=== PATIENT | male | born 1995 | race Caucasian/White ===

== ENCOUNTER 2018-08-11 16:55 | Emergency (ER) | payer OTHER ==
[2018-08-11 17:03] VITALS: BP 119/61; PULSE 98; RESP 18; TEMP 99
[2018-08-11] MEDS ORDERED: PROPARACAINE 0.5% OPHTH DROPS 15 ML BTL RIGHT EYE STA (17:30)
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
== END 2018-08-11 19:01 | disposition home or self-care (01) ==
LOC: EC 16:55
DX: H57.11 Ocular pain, right eye (principal); F17.200 Nicotine dependence, unspecified, uncomplicated
CPT/HCPCS: 99284

== ENCOUNTER 2019-03-07 13:28 | Emergency (ER) | payer OTHER ==
[2019-03-07 13:44] VITALS: BP 119/70; PULSE 91; RESP 16; TEMP 98.2
[2019-03-07] MEDS ORDERED: HYDROcodone/APAP 7.5-325MG 1 EACH TAB PO ONE (14:18)
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
== END 2019-03-07 14:48 | disposition home or self-care (01) ==
LOC: EC 13:28
DX: M25.551 Pain in right hip (principal); F17.200 Nicotine dependence, unspecified, uncomplicated
CPT/HCPCS: 99283

== ENCOUNTER → 2021-10-07 | Outpatient (CLI) | payer MEDICARE, OTHER ==
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
== END | disposition home or self-care (01) ==
LOC: RADMRIMAIN 15:55
PROVIDERS: ATTEND Nurse Practitioner Family
DX: S42.035A Nondisplaced fracture of lateral end of left clavicle, initial encounter for closed fracture (principal); M50.21 Other cervical disc displacement, high cervical region; M51.24 Other intervertebral disc displacement, thoracic region; V89.2XXA Person injured in unspecified motor-vehicle accident, traffic, initial encounter
CPT/HCPCS: 72141

== ENCOUNTER 2021-12-03 14:08 | Emergency (ER) | payer MEDICARE, OTHER ==
[2021-12-03 14:18] VITALS: BP 133/76; PULSE 79; RESP 18; TEMP 98.1
[2021-12-03] MEDS ORDERED: ORPHENADRINE 30 MG/ML 2 ML VIAL IM STA (15:25)
[2021-12-03] MEDS ORDERED: MORPHINE SULFATE 4 MG/ML SYRINGE IM STA (15:26)
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
== END 2021-12-03 16:07 | disposition home or self-care (01) ==
LOC: EC 14:08
DX: M54.2 Cervicalgia (principal); M25.512 Pain in left shoulder; M54.9 Dorsalgia, unspecified; F17.200 Nicotine dependence, unspecified, uncomplicated
CPT/HCPCS: 99283; 96372; J2270; J2360

== ENCOUNTER → 2021-12-04 | Outpatient (CLI) | payer MEDICARE, OTHER ==
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
== END | disposition home or self-care (01) ==
LOC: RADMRIMAIN 12:10
PROVIDERS: ATTEND Nurse Practitioner Family
DX: M47.26 Other spondylosis with radiculopathy, lumbar region (principal)
CPT/HCPCS: 72148

== ENCOUNTER 2021-12-12 09:48 | Emergency (ER) | payer MEDICARE, OTHER ==
[2021-12-12 09:58] VITALS: BP 157/83; PULSE 130; RESP 18; TEMP 98.3
[2021-12-12] MEDS ORDERED: HYDROmorphone 0.5 MG/0.5 ML SYRINGE IM STA (10:43)
[2021-12-12] MEDS ORDERED: methylPREDNISolone SOD SUCCI 125 MG/2 ML VIAL IM ONE (10:45)
[2021-12-12] MEDS ORDERED: ORPHENADRINE 30 MG/ML 2 ML VIAL IM STA (10:45)
--- NOTE | 2021-12-12 11:56 | ED ---
Back Pain HPI - General Chief Complaint: Back Pain/Injury Stated Complaint: revisit - back pain Time Seen by Provider: 12/12/21 10:20 Source: patient, RN notes reviewed Limitations: no limitations - History of Present Illness Initial Comments: This is a 26-year-old male who reports to the emergency department for lower back pain. He was evaluated 9 days ago for lower back pain as well. 8 days ago, he had an MRI, revealing mild degenerative changes and mild areas of disc herniation, however it could not find a reason for the patient's right-sided radiculopathy symptoms. The patient states that he is in distress due to the pain, and is not able to accomplish basic tasks. During the visit, the patient reviewed his whole to do list for the day with me, and explained that given his level of pain, he is unable to accomplish the tasks he needs to do. He also began to have an emotional breakdown during the visit, and said that he was anxious and felt emotionally unstable. Patient was given the option to have an evaluation by EPS, however he declined and said that he does not have any suicidal or homicidal ideations. - Related Data Previous Rx's Medication Instructions Recorded Escitalopram [Lexapro] 10 mg PO DAILY #7 tab 07/20/15 Gabapentin [Neurontin] 900 mg PO TID@0800,1300,2200 #63 07/20/15 cap Montelukast [Singulair] 10 mg PO HS #7 tab 07/20/15 QUEtiapine [SEROquel] 50 mg PO BID@0800,1300 #14 tab 07/20/15 QUEtiapine [SEROquel] 300 mg PO HS #21 tab 07/20/15 Trihexyphenidyl [Artane] 2 mg PO TID@0800,1300,2200 #21 tab 07/20/15 Enoxaparin [Lovenox] 100 mg SQ Q12H #20 syr 03/07/19 oxyCODONE-APAP 7.5-325MG [Percocet 1 tab PO Q4HR PRN 3 Days #18 tab 12/12/21 7.5-325 mg] predniSONE 50 mg PO DAILY 5 Days #5 tab 12/12/21 Allergies Allergy/AdvReac Type Severity Reaction Status Date / Time No Known Allergies Allergy Verified 12/12/21 09:50 Review of Systems ROS Statement: Those systems with pertinent positive or pertinent negative responses have been documented in the HPI. ROS Other: All systems not noted in ROS Statement are negative. Constitutional: Denies: fever, chills ENT: Denies: ear pain, throat pain Respiratory: Denies: cough, dyspnea Cardiovascular: Denies: chest pain, palpitations Gastrointestinal: Denies: abdominal pain, nausea, vomiting, diarrhea Genitourinary: Denies: urgency, dysuria Musculoskeletal: Reports: back pain Skin: Denies: rash Neurological: Denies: headache Psychiatric: Reports: anxiety Past Medical History Past Medical History: No Reported History Additional Past Medical History / Comment(s): Allergies, burn to right eye, narcalepsy History of Any Multi-Drug Resistant Organisms: None Reported Past Surgical History: No Surgical Hx Reported Additional Past Surgical History / Comment(s): foot surgery for cellulitis, multiple right eye surgeries Past Anesthesia/Blood Transfusion Reactions: No Reported Reaction Past Psychological History: ADD/ADHD, Anxiety, Bipolar, Depression, PTSD, Schizoaffective Disorder Smoking Status: Current every day smoker Past Alcohol Use History: Daily Past Drug Use History: Marijuana - Past Family History Mother Additional Family Medical History / Comment(s): Depression. Maybe Bipolar Father Additional Family Medical History / Comment(s): Bipolar/ Paranoid schizophrenia General Exam Limitations: no limitations General appearance: alert, anxious, in distress Respiratory exam: Present: normal lung sounds bilaterally. Absent: respiratory distress, wheezes, rales, rhonchi, stridor Cardiovascular Exam: Present: regular rate, normal rhythm, normal heart sounds. Absent: systolic murmur, diastolic murmur, rubs, gallop, clicks Back exam: Present: tenderness (right lower back) Neurological exam: Present: alert, oriented X3, CN II-XII intact Psychiatric exam: Present: depressed, anxious Skin exam: Present: warm, dry, intact, normal color. Absent: rash Course Vital Signs 12/12/21 09:51 Temperature 98.3 F Pulse Rate 130 H Respiratory 18 Rate Blood Pressure 157/83 O2 Sat by Pulse 98 Oximetry Medical Decision Making - Medical Decision Making This is a 26-year-old male who reports to the emergency department for lower back pain. This has been a relatively chronic issue for the patient, and he is waiting to get in with a pain management physician. Patient is requesting 7 days of oral Dilaudid. I am not willing to provide this to the patient. I will give him a three-day prescription for Percocet, since he has documented reasons for his pain, and it does not improve with [place]. Patient also given prednisone on discharge, to help with any inflammation. Patient advised to avoid taking the prednisone with any other anti-inflammatories such as ibuprofen. He can take Tylenol with this. Given that the patient has chronic back pain, he had a recent MRI, and there are no new symptoms, repeat imaging was not obtained. Patient did settle down at the end of the visit and was no longer in any emotional distress. Return precautions reviewed in depth, the patient is instructed to return to the emergency department with any new, worsening, or concerning symptoms. Patient verbalized understanding. This case was discussed in detail with the attending ED physician. Presentation, findings, and treatment plan discussed in detail as well. Disposition Clinical Impression: Intervertebral disc prolapse with impingement Disposition: HOME SELF-CARE Instructions (If sedation given, give patient instructions): Acute Low Back Pain (ED) Additional Instructions: Return to the emergency department if your symptoms worsen, you develop weakness in the legs, or loss of bowel/bladder control. Avoid driving or operating machinery with the Percocet. Take the Prednisone for 5 days, this is best taken in the morning. Do not take Motrin or any other antiinflammatories while taking the Prednisone. You can take Tylenol. Follow up with your primary care provider in 1-2 days. Prescriptions: oxyCODONE-APAP 7.5-325MG [Percocet 7.5-325 mg] 1 tab PO Q4HR PRN 3 Days #18 tab PRN Reason: Pain predniSONE 50 mg PO DAILY 5 Days #5 tab Is patient prescribed a controlled substance at d/c from ED?: Yes If prescribed controlled substance>3 days was MAPS reviewed?: Prescribed <3 Days Referrals: Hung Nicole MD [Primary Care Provider] - 1-2 days
== END 2021-12-12 12:03 | disposition home or self-care (01) ==
LOC: EC 09:48
DX: M51.26 Other intervertebral disc displacement, lumbar region (principal); F90.9 Attention-deficit hyperactivity disorder, unspecified type; F41.9 Anxiety disorder, unspecified; F31.9 Bipolar disorder, unspecified; F43.10 Post-traumatic stress disorder, unspecified; F25.9 Schizoaffective disorder, unspecified; F17.200 Nicotine dependence, unspecified, uncomplicated; F12.90 Cannabis use, unspecified, uncomplicated
CPT/HCPCS: 99283; 96372 ×3; J2360; J2930; J1170

== ENCOUNTER 2022-01-18 15:29 | Inpatient (IN) | payer MEDICARE, MEDICAID ==
[2022-01-18] MEDS ORDERED: SODIUM CHLORIDE 0.9% 1,000 ML IV STA ×2 (16:24)
[2022-01-18 17:44] LABS: Basophils # (A) 0.1 k/uL (0-0.2); Basophils % (A) 1 %; Eosinophils # (A) 0.1 k/uL (0-0.7); Eosinophils % (A) 1 %; HCT 48.4 % (39.0-53.0); HGB 15.7 gm/dL (13.0-17.5); Lymphocytes # (A) 2.4 k/uL (1.0-4.8); Lymphocytes % (A) 32 %; MCH 29.1 pg (25.0-35.0); MCHC 32.4 g/dL (31.0-37.0); MCV 89.7 fL (80.0-100.0); Mean Platelet Volume 6.5; Monocytes # (A) 0.7 k/uL (0-1.0); Monocytes % (A) 9 %; Neutrophils # (A) 3.9 k/uL (1.3-7.7); Neutrophils % (A) 53 %; Platelet Count 225 k/uL (150-450); RDW 12.6 % (11.5-15.5); WBC 7.4 k/uL (3.8-10.6)
[2022-01-18 18:06] LABS: ALT 26 U/L (4-49); AST 28 U/L (17-59); Acetaminophen <10.0 ug/mL; African American GFR (CKD) >90 (>60 ml/min/1.73 sqM); Albumin 4.6 g/dL (3.5-5.0); Alcohol <10 mg/dL; Alkaline Phosphatase 62 U/L (38-126); Anion Gap 7 mmol/L; Blood Urea Nitrogen 15 mg/dL (9-20); Calcium 9.3 mg/dL (8.4-10.2); Carbon Dioxide 29 mmol/L (22-30); Chloride 105 mmol/L (98-107); Glucose 97 mg/dL (74-99); Non-African American GFR(CKD) >90 (>60 ml/min/1.73 sqM); Potassium 3.8 mmol/L (3.5-5.1); Salicylate <1.0 mg/dL; Sodium 141 mmol/L (137-145); Total Bilirubin 0.5 mg/dL (0.2-1.3); Total Protein 7.9 g/dL (6.3-8.2)
--- NOTE | 2022-01-18 18:08 | ED ---
Psych HPI - General Chief Complaint: Psychiatric Symptoms Stated Complaint: Mental health Source: patient Mode of arrival: ambulatory - History of Present Illness Initial Comments: This 26-year-old male presents with a complaint of an overdose. He states that he took multiple psychiatric medications yesterday around 3 PM. He states that he took these medications in attempt to commit suicide. Please see nursing notes for details on the medications. He is having hard time quantifying how many pills he took. He states that he may have taken 30+ pills. He does relate that he has schizoaffective disorder. He has been having some visual and auditory hallucinations as well. He states that he does not feel as though his psychiatric medications are working very well for him. He also relates a h istory of methamphetamine and heroin abuse. His last methamphetamine use was approximately 3 days ago. He denies any recent heroin use. He does relate chronic pain issues related to back issues. He states that his doctor also thinks she has fibromyalgia. He is denying any fevers, chills, chest pain, shortness of breath. No other identifiable complaints or modifying factors. - Related Data Home Medications Medication Instructions Recorded Confirmed Albuterol Inhaler [Ventolin Hfa 2 puff INHALATION RT-Q4H PRN 01/18/22 01/19/22 Inhaler] Fluticasone Nasal [place] [Flonase 1 spray EA NOSTRIL DAILY PRN 01/18/22 01/19/22 Nasal [place]] Lisdexamfetamine Dimesylate 20 mg PO DAILY@0900 01/18/22 01/19/22 [Vyvanse] Lisdexamfetamine Dimesylate 40 mg PO DAILY@0900 01/18/22 01/19/22 [Vyvanse] Ondansetron [Zofran] 4 mg PO Q4H PRN 01/18/22 01/19/22 Orphenadrine [Norflex] 100 mg PO BID 01/18/22 01/19/22 Paliperidone Palmitate [Invega 819 mg IM Q84H 01/18/22 01/19/22 Trinza] Paliperidone [Invega] 3 mg PO DAILY PRN 01/18/22 01/19/22 Pregabalin [Lyrica] 100 mg PO BID 01/18/22 01/19/22 clonazePAM [KlonoPIN] 0.5 mg PO BID 01/18/22 01/19/22 prednisoLONE ACETATE 1% OPHTH 1 drop RIGHT EYE BID 01/18/22 01/19/22 [Pred Forte 1%] Allergies Allergy/AdvReac Type Severity Reaction Status Date / Time No Known Allergies Allergy Verified 01/19/22 04:37 Review of Systems ROS Statement: Those systems with pertinent positive or pertinent negative responses have been documented in the HPI. ROS Other: All systems not noted in ROS Statement are negative. Past Medical History Past Medical History: No Reported History Additional Past Medical History / Comment(s): Allergies, burn to right eye, narcalepsy History of Any Multi-Drug Resistant Organisms: None Reported Past Surgical History: No Surgical Hx Reported Additional Past Surgical History / Comment(s): foot surgery for cellulitis, multiple right eye surgeries Past Anesthesia/Blood Transfusion Reactions: No Reported Reaction Past Psychological History: ADD/ADHD, Anxiety, Bipolar, Depression, PTSD, Schizoaffective Disorder Smoking Status: Current every day smoker Past Alcohol Use History: Daily Past Drug Use History: Marijuana - Past Family History Mother Additional Family Medical History / Comment(s): Depression. Maybe Bipolar Father Additional Family Medical History / Comment(s): Bipolar/ Paranoid schizophrenia General Exam - General Exam Comments Initial Comments: GENERAL: The patient is well nourished and well hydrated. VITAL SIGNS: Heart rate, blood pressure, respiratory rate reviewed as recorded in nurse's notes. EYES: Pupils are round and reactive. Extraocular movements are intact. No conjunctival / lid redness or swelling. ENT: No external evidence of injury, swelling, or ecchymosis. Airway is patent. Throat is clear. NECK: Nontender. No swelling or evidence of injury. No subcutaneous emphysema. Trachea is midline. No thyroid mass. HEART: Regular rate and rhythm. Good peripheral pulses. LUNGS/CHEST: Breath sounds clear and equal bilaterally. No rales, rhonchi, or wheezes. No ecchymosis, subcutaneous emphysema, or tenderness. ABDOMEN: Abdomen soft without tenderness. No palpable masses or organomegaly. No peritoneal signs. No abdominal wall swelling or ecchymosis. EXTREMITIES: No extremity tenderness. Normal muscle tone and function. No thoracolumbar tenderness. NEUROLOGIC: Sensation is grossly intact. Cranial nerve exam reveals face is symmetrical, tongue is midline, speech is clear. SKIN: No abrasions or ecchymosis is noted. No induration or masses noted. PSYCHIATRIC: Alert and oriented. Appropriate behavior currently. Limitations: no limitations Course Vital Signs 01/18/22 01/18/22 01/19/22 15:32 23:30 04:58 Temperature 97.5 F L 97.7 F 97.7 F Pulse Rate 121 H 87 77 Respiratory 18 16 15 Rate Blood Pressure 158/87 136/86 145/70 O2 Sat by Pulse 100 97 97 Oximetry Medical Decision Making - Medical Decision Making The patient was seen and examined. All diagnostics are reviewed. The nurses calling poison control further recommendations in regard to his overdose. Laboratories drawn. The laboratory does not show any acute significant abnor malities. The nurse did discuss with poison control center and they felt as though it he is stable as he isn't did have the ingestion over 24 hours ago and his laboratory and EKG are all normal. Consult is placed for psych/EPS. We are currently awaiting their evaluation. Care will be passed off to Dr. Noyola. No complications noted during ER course thus far. - Lab Data Result diagrams: 01/18/22 17:32 01/18/22 17:32 Lab Results 01/18/22 01/18/22 01/18/22 Range/Units 17:32 17:32 18:49 WBC 7.4 (3.8-10.6) k/uL RBC 5.40 (4.30-5.90) m/uL Hgb 15.7 (13.0-17.5) gm/dL Hct 48.4 (39.0-53.0) % MCV 89.7 (80.0-100.0) fL MCH 29.1 (25.0-35.0) pg MCHC 32.4 (31.0-37.0) g/dL RDW 12.6 (11.5-15.5) % Plt Count 225 (150-450) k/uL MPV 6.5 Neutrophils % 53 % Lymphocytes % 32 % Monocytes % 9 % Eosinophils % 1 % Basophils % 1 % Neutrophils # 3.9 (1.3-7.7) k/uL Lymphocytes # 2.4 (1.0-4.8) k/uL Monocytes # 0.7 (0-1.0) k/uL Eosinophils # 0.1 (0-0.7) k/uL Basophils # 0.1 (0-0.2) k/uL Sodium 141 (137-145) mmol/L Potassium 3.8 (3.5-5.1) mmol/L Chloride 105 (98-107) mmol/L Carbon Dioxide 29 (22-30) mmol/L Anion Gap 7 mmol/L BUN 15 (9-20) mg/dL Creatinine 0.92 (0.66-1.25) mg/dL Est GFR (CKD-EPI)AfAm >90 (>60 ml/min/1.73 sqM) Est GFR (CKD-EPI)NonAf >90 (>60 ml/min/1.73 sqM) Glucose 97 (74-99) mg/dL Calcium 9.3 (8.4-10.2) mg/dL Total Bilirubin 0.5 (0.2-1.3) mg/dL AST 28 (17-59) U/L ALT 26 (4-49) U/L Alkaline Phosphatase 62 (38-126) U/L Total Protein 7.9 (6.3-8.2) g/dL Albumin 4.6 (3.5-5.0) g/dL Urine Color Urine Appearance (Clear) Urine pH (5.0-8.0) Ur Specific [place] (1.001-1.035) Urine Protein (Negative) Urine Glucose (UA) (Negative) Urine Ketones (Negative) Urine Blood (Negative) Urine Nitrite (Negative) Urine Bilirubin (Negative) Urine Urobilinogen (<2.0) mg/dL Ur Leukocyte Esterase (Negative) Urine RBC (0-5) /hpf Urine WBC (0-5) /hpf Amorphous Sediment (None) /hpf Urine Bacteria (None) /hpf Urine Mucus (None) /hpf Salicylates <1.0 mg/dL Urine Opiates Screen Not Detected (NotDetected) Ur Oxycodone Screen Not Detected (NotDetected) Urine Methadone Screen Not Detected (NotDetected) Ur Propoxyphene Screen Not Detected (NotDetected) Acetaminophen <10.0 ug/mL Ur Barbiturates Screen Not Detected (NotDetected) U Tricyclic Antidepress Not Detected (NotDetected) Ur Phencyclidine Scrn Not Detected (NotDetected) Ur Amphetamines Screen Not Detected (NotDetected) U Methamphetamines Scrn Detected H (NotDetected) U Benzodiazepines Scrn Not Detected (NotDetected) Urine Cocaine Screen Not Detected (NotDetected) U Marijuana (THC) Screen Detected H (NotDetected) Serum Alcohol <10 mg/dL Coronavirus (PCR) (Not Detectd) 01/19/22 01/19/22 Range/Units 00:00 02:54 WBC (3.8-10.6) k/uL RBC (4.30-5.90) m/uL Hgb (13.0-17.5) gm/dL Hct (39.0-53.0) % MCV (80.0-100.0) fL MCH (25.0-35.0) pg MCHC (31.0-37.0) g/dL RDW (11.5-15.5) % Plt Count (150-450) k/uL MPV Neutrophils % % Lymphocytes % % Monocytes % % Eosinophils % % Basophils % % Neutrophils # (1.3-7.7) k/uL Lymphocytes # (1.0-4.8) k/uL Monocytes # (0-1.0) k/uL Eosinophils # (0-0.7) k/uL Basophils # (0-0.2) k/uL Sodium (137-145) mmol/L Potassium (3.5-5.1) mmol/L Chloride (98-107) mmol/L Carbon Dioxide (22-30) mmol/L Anion Gap mmol/L BUN (9-20) mg/dL Creatinine (0.66-1.25) mg/dL Est GFR (CKD-EPI)AfAm (>60 ml/min/1.73 sqM) Est GFR (CKD-EPI)NonAf (>60 ml/min/1.73 sqM) Glucose (74-99) mg/dL Calcium (8.4-10.2) mg/dL Total Bilirubin (0.2-1.3) mg/dL AST (17-59) U/L ALT (4-49) U/L Alkaline Phosphatase (38-126) U/L Total Protein (6.3-8.2) g/dL Albumin (3.5-5.0) g/dL Urine Color Yellow Urine Appearance Turbid (Clear) Urine pH 6.0 (5.0-8.0) Ur Specific [place] 1.034 (1.001-1.035) Urine Protein Trace H (Negative) Urine Glucose (UA) Negative (Negative) Urine Ketones Negative (Negative) Urine Blood Negative (Negative) Urine Nitrite Negative (Negative) Urine Bilirubin Negative (Negative) Urine Urobilinogen 2.0 (<2.0) mg/dL Ur Leukocyte Esterase Trace H (Negative) Urine RBC 3 (0-5) /hpf Urine WBC 11 H (0-5) /hpf Amorphous Sediment Rare H (None) /hpf Urine Bacteria Occasional H (None) /hpf Urine Mucus Moderate H (None) /hpf Salicylates mg/dL Urine Opiates Screen (NotDetected) Ur Oxycodone Screen (NotDetected) Urine Methadone Screen (NotDetected) Ur Propoxyphene Screen (NotDetected) Acetaminophen ug/mL Ur Barbiturates Screen (NotDetected) U Tricyclic Antidepress (NotDetected) Ur Phencyclidine Scrn (NotDetected) Ur Amphetamines Screen (NotDetected) U Methamphetamines Scrn (NotDetected) U Benzodiazepines Scrn (NotDetected) Urine Cocaine Screen (NotDetected) U Marijuana (THC) Screen (NotDetected) Serum Alcohol mg/dL Coronavirus (PCR) Not Detected (Not Detectd) Disposition Clinical Impression: Depression, Suicidal ideation, Attempted suicide, Schizoaffective disorder, Hallucinations, Overdose Disposition: ADMITTED IP TO THIS [facility] Condition: Fair Is patient prescribed a controlled substance at d/c from ED?: No Time of Disposition: 03:00 Decision Date: 01/19/22 Decision Time: 03:00
[2022-01-18 19:16] LABS: Amphetamine Screen,Urine Not Detected (NotDetected); Barbiturate Screen,Urine Not Detected (NotDetected); Benzodiazepines Screen,Urine Not Detected (NotDetected); Cocaine Screen,Urine Not Detected (NotDetected); Methadone Screen, Urine Not Detected (NotDetected); Opiate Screen,Urine Not Detected (NotDetected); Oxycodone Screen, Urine Not Detected (NotDetected); Phencyclidine Screen,Urine Not Detected (NotDetected); Tricyclic Antidepressant,Urine Not Detected (NotDetected); Urn Cannabinoid Scrn Detected (NotDetected)
[2022-01-18] MEDS ORDERED: ALBUTEROL NEBULIZED 2.5 MG/3 ML INHALATION PRN (21:11)
[2022-01-18] MEDS ORDERED: FLUTICASONE 50MCG/SPRAY NASAL 16GM EA NOSTRIL PRN (21:11)
[2022-01-18] MEDS ORDERED: ONDANSETRON 4 MG TAB PO PRN (21:11)
[2022-01-18] MEDS ORDERED: PALIPERIDONE 3 MG TAB.ER.24 PO PRN (21:11)
[2022-01-18] MEDS: PREGABALIN 100 MG CAP PO SCH (21:28)
[2022-01-18] MEDS: CYCLOBENZAPRINE 10 MG TAB PO SCH (21:28)
[2022-01-18] MEDS: clonazePAM 0.5 MG TAB PO SCH (21:29)
[2022-01-19] MEDS ORDERED: ALBUTEROL INHALER 60 PUFF/8 GM INHALER (MHU) INHALATION PRN (04:12)
[2022-01-19] MEDS ORDERED: HALOPERIDOL LACTATE 5 MG/ML 1 ML VIAL IM PRN (04:17)
[2022-01-19] MEDS ORDERED: MAG HYDROX/AL HYDROX/SIMETH 30 ML CUP PO PRN (04:17)
[2022-01-19] MEDS ORDERED: MAGNESIUM HYDROXIDE 2,400 MG/10 ML CUP PO PRN (04:17)
[2022-01-19] MEDS ORDERED: ACETAMINOPHEN TAB 325 MG TAB PO PRN (04:17)
[2022-01-19] MEDS ORDERED: LORazepam 2 MG/ML INJ IM PRN (04:22)
[2022-01-19 05:29] LABS: Amorphous Sediment,Urine Rare /hpf; Appearance,Urine Turbid (Clear); Bacteria,Urine Occasional /hpf; Bilirubin,Urine Negative (Negative); Blood,Urine Negative (Negative); Color,Urine Yellow; Glucose,Urine (UA) Negative (Negative); Ketones,Urine Negative (Negative); Leukocyte Esterase,Urine Trace (Negative); Mucus,Urine Moderate /hpf; Nitrite,Urine Negative (Negative); Protein,Urine Trace (Negative); RBC,Urine 3 /hpf (0-5); Specific Gravity,Urine 1.034 (1.001-1.035); WBC,Urine 11 /hpf (0-5)
[2022-01-19] MEDS: CYCLOBENZAPRINE 10 MG TAB PO SCH ×2 (08:30→19:57)
[2022-01-19] MEDS: NICOTINE 14MG/24HR PATCH TRANSDERM SCH (08:31)
[2022-01-19] MEDS: clonazePAM 0.5 MG TAB PO SCH ×2 (08:31→19:57)
[2022-01-19] MEDS: PREGABALIN 100 MG CAP PO SCH ×2 (08:31→19:57)
[2022-01-19] MEDS ORDERED: NON FORMULARY DRUG (Orphenadrine 100 MG Tablet) PO SCH (09:00)
[2022-01-19] MEDS ORDERED: PREGABALIN 100 MG CAP PO SCH (09:00)
[2022-01-19] MEDS ORDERED: clonazePAM 0.5 MG TAB PO SCH (09:00)
[2022-01-19] MEDS ORDERED: NON FORMULARY DRUG (Lisdexamfetamine Dimesylate [Vyvanse] 20 MG Capsule) PO SCH (09:00)
[2022-01-19] MEDS: NON FORMULARY DRUG (Lisdexamfetamine Dimesylate [Vyvanse] 40 MG Capsule) PO SCH (09:17)
[2022-01-19] MEDS: prednisoLONE ACETATE 1% OPHTH DROPS 5 ML BTL RIGHT EYE SCH ×2 (10:33→19:56)
[2022-01-19] MEDS: PALIPERIDONE 3 MG TAB.ER.24 PO SCH ×2 (11:41→19:57)
[2022-01-19] MEDS: haloperidoL 5 MG TAB PO PRN ×2 (11:44→21:08)
[2022-01-19] MEDS: LORazepam 1 MG TAB PO PRN ×2 (11:44→21:08)
[2022-01-19] MEDS ORDERED: LORazepam 2 MG/ML INJ IM STA (12:05)
--- NOTE | 2022-01-19 13:19 | P.HP ---
Psychiatric H&P - . H&P Date: 01/19/22 History & Physical: Allergies Allergy/AdvReac Type Severity Reaction Status Date / Time No Known Allergies Allergy Verified 01/19/22 04:37 Vital Signs Temp 97.4 F L 01/19/22 06:07 Pulse 77 01/19/22 06:07 Resp 77 H 01/19/22 06:07 BP 132/67 01/19/22 06:07 Pulse Ox 97 01/19/22 04:58 Intake & Output 01/18/22 01/19/22 01/19/22 18:59 06:59 18:59 Weight 108.862 kg 115.9 kg Laboratory Last Values WBC 7.4 k/uL (3.8-10.6) 01/18/22 17:32 RBC 5.40 m/uL (4.30-5.90) 01/18/22 17:32 Hgb 15.7 gm/dL (13.0-17.5) 01/18/22 17:32 Hct 48.4 % (39.0-53.0) 01/18/22 17:32 MCV 89.7 fL (80.0-100.0) 01/18/22 17:32 MCH 29.1 pg (25.0-35.0) 01/18/22 17:32 MCHC 32.4 g/dL (31.0-37.0) 01/18/22 17:32 RDW 12.6 % (11.5-15.5) 01/18/22 17:32 Plt Count 225 k/uL (150-450) 01/18/22 17:32 MPV 6.5 01/18/22 17:32 Neutrophils % 53 % 01/18/22 17:32 Lymphocytes % 32 % 01/18/22 17:32 Monocytes % 9 % 01/18/22 17:32 Eosinophils % 1 % 01/18/22 17:32 Basophils % 1 % 01/18/22 17:32 Neutrophils # 3.9 k/uL (1.3-7.7) 01/18/22 17:32 Lymphocytes # 2.4 k/uL (1.0-4.8) 01/18/22 17:32 Monocytes # 0.7 k/uL (0-1.0) 01/18/22 17:32 Eosinophils # 0.1 k/uL (0-0.7) 01/18/22 17:32 Basophils # 0.1 k/uL (0-0.2) 01/18/22 17:32 Sodium 141 mmol/L (137-145) 01/18/22 17:32 Potassium 3.8 mmol/L (3.5-5.1) 01/18/22 17:32 Chloride 105 mmol/L (98-107) 01/18/22 17:32 Carbon Dioxide 29 mmol/L (22-30) 01/18/22 17:32 Anion Gap 7 mmol/L 01/18/22 17:32 BUN 15 mg/dL (9-20) 01/18/22 17:32 Creatinine 0.92 mg/dL (0.66-1.25) 01/18/22 17:32 Est GFR (CKD-EPI)AfAm >90 (>60 ml/min/1.73 sqM) 01/18/22 17:32 Est GFR (CKD-EPI)NonAf >90 (>60 ml/min/1.73 sqM) 01/18/22 17:32 Glucose 97 mg/dL (74-99) 01/18/22 17:32 Calcium 9.3 mg/dL (8.4-10.2) 01/18/22 17:32 Total Bilirubin 0.5 mg/dL (0.2-1.3) 01/18/22 17:32 AST 28 U/L (17-59) 01/18/22 17:32 ALT 26 U/L (4-49) 01/18/22 17:32 Alkaline Phosphatase 62 U/L (38-126) 01/18/22 17:32 Total Protein 7.9 g/dL (6.3-8.2) 01/18/22 17:32 Albumin 4.6 g/dL (3.5-5.0) 01/18/22 17:32 Urine Color Yellow 01/19/22 00:00 Urine Appearance Turbid (Clear) 01/19/22 00:00 Urine pH 6.0 (5.0-8.0) 01/19/22 00:00 Ur Specific [place] 1.034 (1.001-1.035) 01/19/22 00:00 Urine Protein Trace (Negative) H 01/19/22 00:00 Urine Glucose (UA) Negative (Negative) 01/19/22 00:00 Urine Ketones Negative (Negative) 01/19/22 00:00 Urine Blood Negative (Negative) 01/19/22 00:00 Urine Nitrite Negative (Negative) 01/19/22 00:00 Urine Bilirubin Negative (Negative) 01/19/22 00:00 Urine Urobilinogen 2.0 mg/dL (<2.0) 01/19/22 00:00 Ur Leukocyte Esterase Trace (Negative) H 01/19/22 00:00 Urine RBC 3 /hpf (0-5) 01/19/22 00:00 Urine WBC 11 /hpf (0-5) H 01/19/22 00:00 Amorphous Sediment Rare /hpf (None) H 01/19/22 00:00 Urine Bacteria Occasional /hpf (None) H 01/19/22 00:00 Urine Mucus Moderate /hpf (None) H 01/19/22 00:00 Salicylates <1.0 mg/dL 01/18/22 17:32 Urine Opiates Screen Not Detected (NotDetected) 01/18/22 18:49 Ur Oxycodone Screen Not Detected (NotDetected) 01/18/22 18:49 Urine Methadone Screen Not Detected (NotDetected) 01/18/22 18:49 Ur Propoxyphene Screen Not Detected (NotDetected) 01/18/22 18:49 Acetaminophen <10.0 ug/mL 01/18/22 17:32 Ur Barbiturates Screen Not Detected (NotDetected) 01/18/22 18:49 U Tricyclic Antidepress Not Detected (NotDetected) 01/18/22 18:49 Ur Phencyclidine Scrn Not Detected (NotDetected) 01/18/22 18:49 Ur Amphetamines Screen Not Detected (NotDetected) 01/18/22 18:49 U Methamphetamines Scrn Detected (NotDetected) H 01/18/22 18:49 U Benzodiazepines Scrn Not Detected (NotDetected) 01/18/22 18:49 Urine Cocaine Screen Not Detected (NotDetected) 01/18/22 18:49 U Marijuana (THC) Screen Detected (NotDetected) H 01/18/22 18:49 Serum Alcohol <10 mg/dL 01/18/22 17:32 Coronavirus (PCR) Not Detected (Not Detectd) 01/19/22 02:54 01/19/22 13:08 IDENTIFYING DATA: Patient is a 26-year-old male with history of schizoaffective disorder. HPI: Patient presented to the hospital yesterday after an overdose on medications as a suicide attempt. According to ER report patient had taken multiple medications at around 3:00. Patient has a history of auditory and visual hallucinations and also history of schizoaffective disorder. Patient's UDS is positive for methamphetamine and marijuana. Patient was seen in the hallway today and agreeable to speak to web content writer. Patient was fairly intrusive and appeared to be fairly paranoid. He claims that he came to the hospital "to get better" and also claimed that he was "seeing the signs". He claims that he does not trust staff members and wants to get out of the hospital. He did mention that he was using methamphetamine however did not give a straight answer as to how much he is using and how often. He was rambling at times was illogical and had loose associations. He was fairly defensive about his drug use and being in the hospital. He claims that "I couldn't handle my stress". He does claim that he is a substance user. He states that he also "wants to talk to CPS" and also spoke about the drug task force working with [facility]. He states that his sleep has been poor lately. Patient denies any suicidal or homicidal ideations intent or plan. At this time patient denies any auditory or visual hallucinations. Patient admits to using methamphetamine and marijuana along with cigarettes. Patient was preoccupied with the iPad on web content writer's desk and believes that he was "recording the conversation" and patient stood up and attempted to Corner web content writer in the office, the panic button was depressed and patient was directed out of the office and received Po haldol and ativan however patient was still intrusive aggressive and paranoid and was getting more agitated and received a second dose of Haldol and Ativan however it was an IM. PAST PSYCHIATRIC HISTORY: Patient states that [he has a history of schizoaffective disorder]. Patient is currently on invega Trinza 819mg IM q84 days and also taking klonopin. Patient follows up at [facility] for his psychiatric care. [Patient denies any history of suicide attempts in the past.] PMH: As per medicine H&P. ALLERGIES: as per EMR CHEMICAL DEPENDENCY HISTORY: as per HPI FAMILY PSYCHIATRIC/SUBSTANCE USE HISTORY: . Unable to gather reliable history SOCIAL HISTORY: Unable to gather reliable history. MENTAL STATUS EXAM: General Appearance: Patient appears to be overweight, stated age is alert, intrusive and not directable. Paranoid. Patient appears to have [poor] hygiene and grooming. Behavior: Patient is seated without any agitated behavior. Paranoid and int rusive. Speech: Patient's speech is [fluent and nonpressured.] Illogical. Mood/Affect: Patient reports their mood is [depressed], affect is congruent and constricted. Suicidality/Homicidality: Patient denies having any homicidal ideation intent or plan. [Denies any suicidal ideations intent or plan] Perceptions: Patient denies any visual hallucinations [and denies any auditory hallucinations] Though content/process: Illogical, loose associations, bizarre comments, delusional. Significant paranoia. Memory and concentration: AOX2-3. Cannot spell "WORLD" backwards Judgment and insight: [poor] STRENGTHS/WEAKNESSES: strength is that patient is [resilient]. Weakness is that patient [has poor judgment and is impulsive] INTELLECT: [average] IMPRESSIONS: Schizoaffective disorder Methamphetamine abuse Cannabis use disorder Nicotine dependence PLAN: -Patient is admitted under [voluntary] status to MHU for stabilization of psychiatric symptoms and safety. Patient has [not] signed [medication consent] and is placed in patient's chart. -Medications : Will start patient on Invega PO 3 mg bid for psychosis. Will attempt to find out when patient last received Inevga Trinza from [facility]. decreased klonopin 0.5 qhs. -Ativan [and Haldol] PRN for agitation/aggression -Patient was informed of the risks, benefits and side effects of the medication, he did not sign for meds. -Internal Medicine consult to perform medical evaluation and physical. -NRT - [nicotine patch] -SW on board for discharge planning. Encourage patient to participate in groups to work on coping skills. 01/19/22 13:11 01/19/22 13:17
[2022-01-19] MEDS ORDERED: diphenhydrAMINE 50 MG/ML 1 ML VIAL IM PRN (16:00)
--- NOTE | 2022-01-19 21:21 | P.CONS ---
History of Present Illness - Reason for Consult Consult date: 01/19/22 Medical management Requesting physician: Gerard Floyd - Chief Complaint Overdose - History of Present Illness This is a 26-year-old patient who follows with Dr. Major.. He presented to ER complaining of overdose. He took multiple psychiatry medications yesterday around 3 PM prior to come to the ER. It attempted to commit suicide. This included methamphetamines. He may have taken about 30+ pills altogether. He has known schizoaffective disorder. Has been having visual and auditory hallucinations. 3 days prior to coming to the ER he had done better for device. No recent heroin use. He has chronic pain issues including herniated disc he described the back. He may have a diagnosis of fibromyalgia. No fever no chills. Has not been sleeping well. Significant amount of reflux. She is right eye: Blunt and years ago and can only perceive light. He missed smoke daily marijuana sometimes up to 5-6 joints a day. Still smokes cigarettes. Review of systems: GEN.: None EYES: Poor vision right eye HEENT: None NECK: None RESPIRATORY: None CARDIOVASCULAR: None GASTROINTESTINAL: None GENITOURINARY: None MUSCULOSKELETAL: None LYMPHATICS: None HEMATOLOGICAL: None PSYCHIATRY: Anxiety depressed NEUROLOGICAL: None Past medical history to include: PTSD, schizoaffective disorder, blunt injury to right eye, Social history: This is a girlfriend Payal thacker a 2-year-old child. Smokes about a pack and half a day. This marijuana daily can go up to 5-6 joints a day sometimes. Also methamphetamines. Not employed Family history: Bipolar Physical examination: VITAL SIGNS: 99, 109, 18, 132/67, 98% room air GENERAL: BMI 35.6, sitting up in bed, awake. EYES: Damage and hazy right eyel. HEENT: External appearance of nose and ears normal, oral cavity grossly normal. NECK: JVD not raised; masses not palpable. HEART: First and second heart sounds are normal; no edema. LUNGS: Respiratory rate normal; clear to auscultation. ABDOMEN: Soft, nontender, liver spleen not palpable, no masses palpable. PSYCH: [Alert and oriented x3; mood and affect anxious. MUSCULOSKELETAL:No Clubbing/cyanosis;muscles-grossly intact NEUROLOGICAL: Cranial nerves grossly intact; no facial asymmetry, power and sensation grossly intact. LYMPHATICS: No lymph nodes palpable in the axilla and neck INVESTIGATIONS, reviewed in the clinical context: White count 7.4 hemoglobin 15.7 platelets 220 02/05/1940 potassium 3.8 creatinine 0.9 to Urine drug screen: Positive for methamphetamines, marijuana Serum alcohol less than 10 acetaminophen less than 10 salicylates less than 1 COVID 19: Not detected Assessment and plan: -Chronic nicotine dependence, cigarette smoker Nicotine patch. Counseled -Recreational use of methamphetamine. Watch for withdrawals.counselrd. -Recreational marijuana use Patient counseled -Obesity BMI 35.6 Weight loss measures -Acute insomnia from recreational drug use. -GERD Pepcid 20 mg twice a day Patient also claims to have history of fibromyalgia with herniated disc. Thank you Dr. Floyd Past Medical History Past Medical History: No Reported History Additional Past Medical History / Comment(s): Allergies, burn to right eye, narcalepsy History of Any Multi-Drug Resistant Organisms: None Reported Past Surgical History: No Surgical Hx Reported Additional Past Surgical History / Comment(s): foot surgery for cellulitis, multiple right eye surgeries Past Anesthesia/Blood Transfusion Reactions: No Reported Reaction Past Psychological History: ADD/ADHD, Anxiety, Bipolar, Depression, PTSD, Schizoaffective Disorder Smoking Status: Current every day smoker Past Alcohol Use History: Daily Past Drug Use History: Marijuana - Past Family History Mother Additional Family Medical History / Comment(s): Depression. Maybe Bipolar Father Additional Family Medical History / Comment(s): Bipolar/ Paranoid schizophrenia Medications and Allergies Home Medications Medication Instructions Recorded Confirmed Type Albuterol Inhaler [Ventolin Hfa 2 puff INHALATION RT-Q4H PRN 01/18/22 01/19/22 History Inhaler] Fluticasone Nasal [place] [Flonase 1 spray EA NOSTRIL DAILY PRN 01/18/22 01/19/22 History Nasal Wheeler] Lisdexamfetamine Dimesylate 20 mg PO DAILY@0900 01/18/22 01/19/22 History [Vyvanse] Lisdexamfetamine Dimesylate 40 mg PO DAILY@0900 01/18/22 01/19/22 History [Vyvanse] Ondansetron [Zofran] 4 mg PO Q4H PRN 01/18/22 01/19/22 History Orphenadrine [Norflex] 100 mg PO BID 01/18/22 01/19/22 History Paliperidone Palmitate [Invega 819 mg IM Q84H 01/18/22 01/19/22 History Trinza] Paliperidone [Invega] 3 mg PO DAILY PRN 01/18/22 01/19/22 History Pregabalin [Lyrica] 100 mg PO BID 01/18/22 01/19/22 History clonazePAM [KlonoPIN] 0.5 mg PO BID 01/18/22 01/19/22 History prednisoLONE ACETATE 1% OPHTH 1 drop RIGHT EYE BID 01/18/22 01/19/22 History [Pred Forte 1%] Allergies Allergy/AdvReac Type Severity Reaction Status Date / Time No Known Allergies Allergy Verified 01/19/22 04:37 Physical Exam Vitals: Vital Signs Temp Pulse Pulse Pulse Resp BP BP 01/19/22 13:05 99.0 F 109 H 18 152/78 01/19/22 06:07 97.4 F L 77 77 H 132/67 01/19/22 04:58 97.7 F 77 15 145/70 01/18/22 23:30 97.7 F 87 16 136/86 Pulse Ox 01/19/22 13:05 98 01/19/22 06:07 01/19/22 04:58 97 01/18/22 23:30 97 Intake and Output 01/19/22 01/19/22 01/19/22 06:59 14:59 22:59 Other: Weight 115.9 kg Results CBC & Chem 7: 01/18/22 17:32 01/18/22 17:32 Labs: Abnormal Lab Results - Last 24 Hours (Table) 01/19/22 Range/Units 00:00 Urine Protein Trace H (Negative) Ur Leukocyte Esterase Trace H (Negative) Urine WBC 11 H (0-5) /hpf Amorphous Sediment Rare H (None) /hpf Urine Bacteria Occasional H (None) /hpf Urine Mucus Moderate H (None) /hpf
[2022-01-19] MEDS: FAMOTIDINE 20 MG TAB PO SCH (22:37)
[2022-01-20] MEDS ORDERED: chlorproMAZINE 25 MG TAB PO STA (00:20)
[2022-01-20] MEDS ORDERED: diphenhydrAMINE 50 MG CAP PO STA (00:21)
[2022-01-20] MEDS: LORazepam 2 MG/ML INJ IM PRN ×3 (02:39→23:26)
[2022-01-20] MEDS: CYCLOBENZAPRINE 10 MG TAB PO SCH ×4 (12:55→19:53)
[2022-01-20] MEDS: PALIPERIDONE 3 MG TAB.ER.24 PO SCH ×3 (12:56→19:51)
[2022-01-20] MEDS: FAMOTIDINE 20 MG TAB PO SCH ×4 (12:56→19:54)
[2022-01-20] MEDS: prednisoLONE ACETATE 1% OPHTH DROPS 5 ML BTL RIGHT EYE SCH ×2 (12:56→19:58)
[2022-01-20] MEDS: NON FORMULARY DRUG (Lisdexamfetamine Dimesylate [Vyvanse] 40 MG Capsule) PO SCH (12:56)
[2022-01-20] MEDS: NICOTINE 14MG/24HR PATCH TRANSDERM SCH ×2 (12:56→13:32)
[2022-01-20] MEDS: PREGABALIN 100 MG CAP PO SCH ×5 (12:56→19:53)
[2022-01-20] MEDS: LORazepam 1 MG TAB PO PRN (13:34)
[2022-01-20 15:23] LABS: Chol/HDL Ratio 3.28 Ratio; LDL Cholesterol,Calculated 85.1 mg/dL (0.0-131.0)
[2022-01-20] MEDS: HALOPERIDOL LACTATE 5 MG/ML 1 ML VIAL IM PRN ×2 (17:59→23:26)
[2022-01-20] MEDS: clonazePAM 0.5 MG TAB PO SCH (19:51)
[2022-01-21] MEDS ORDERED: traZODone HCL 100 MG TAB PO PRN (09:18)
--- NOTE | 2022-01-21 09:21 | P.PN ---
Progress Note - Text Progress Note Date: 01/20/22 Patient was seen on 01/20/22 Interval History: Patient was seen laying in his bed and was approached by ghost writer. Patient appeared to be fairly lethargic and answered only minimal questions. He picked his head up and looked at ghost writer and states that he is doing okay. He is fairly concrete and constricted. He did not mention any overnight complaints. He received several prn meds the night before. At this time patient denies any suicidal or homical ideations, intent or plan. Patient denies any auditory, visual hallucinations and denies any paranoia or delusions. Patient denies any side effects from the medications and has been compliant with meds. Mental Status Exam: General Appearance: Patient appears to be overweight, stated age is lethargic, attempts to cooperate however is too somnolent. Paranoid, improving mildly. Patient appears to have improving hygiene and grooming. Behavior: Patient is seated without any agitated behavior. Paranoid, improving mildly Speech: Patient's speech is fluent and nonpressured. Illogical, proving mildly Mood/Affect: Patient reports their mood is improving mildly, affect is congruent and constricted. Suicidality/Homicidality: Patient denies having any homicidal ideation intent or plan. Denies any suicidal ideations intent or plan Perceptions: Patient denies any visual hallucinations and denies any auditory hallucinations Though content/process: Illogical, loose associations, bizarre comments, delusional. [place]. Memory and concentration: AOX2-3. Judgment and insight: poor, improving mildly IMPRESSIONS: Schizoaffective disorder Methamphetamine abuse Cannabis use disorder Nicotine dependence Plan: -Patient continues to meet criteria for inpatient psychiatric admission for symptom stabilization and safety. Patient has signed adult voluntary form and medication consent and was placed in patient's chart. -Medications: Invega PO 3 mg bid for psychosis. Will attempt to find out when patient last received Inevga Trinza from [facility]. klonopin 0.5 qhs. -When necessary Ativan and Haldol for agitation/aggression. -NRT - nicotine patch -SW on board for discharge planning. Encouraged the patient to participate in milieu. Currently awaiting deferral with attorney lawyer and court date.
--- NOTE | 2022-01-21 09:25 | P.PN ---
Progress Note - Text Progress Note Date: 01/21/22 Interval History: Patient was seen sitting at the side of his bed today in his room alone. He c laims that he is feeling "not good today" and claims that he is feeling mild depression and some anxiety. He claims that he is feeling somewhat tired however did not sleep at all last night. He states that he was pacing the hallways. He claims that he is not interested in going to many groups today. He was not preoccupied with delusions or paranoia today. He was fairly concrete and had poverty of content in his thought process. Less bizarre and more directable today. States that his appetite is fair. He was agreeable to have his medications adjusted. At this time patient denies any suicidal or homical ideations, intent or plan. Patient admits to hearing voices. He denies any visual hallucinations and denies any paranoia or delusions. Patient denies any side effects from the medications and has been compliant with meds. Mental Status Exam: General Appearance: Patient appears to be overweight, stated age is alert, attempts to cooperate, sitting at the side of his bed. Paranoid, improving mildly. Patient appears to have improving hygiene and grooming. Behavior: Patient is seated without any agitated behavior. Attempts to cooperate. Speech: Patient's speech is fluent and nonpressured. [place] Mood/Affect: Patient reports their mood is depressed and anxious, affect is congruent and constricted. Suicidality/Homicidality: Patient denies having any homicidal ideation intent or plan. Denies any suicidal ideations intent or plan Perceptions: Patient denies any visual hallucinations and admits to hearing voices. Though content/process: Less delusional today, more appropriate and goal oriented. [place]. Memory and concentration: AOX2-3. Judgment and insight: poor, improving mildly IMPRESSIONS: Schizoaffective disorder Methamphetamine abuse Cannabis use disorder Nicotine dependence Plan: -Patient continues to meet criteria for inpatient psychiatric admission for symptom stabilization and safety. Patient has signed adult voluntary form and medication consent and was placed in patient's chart. -Medications: increase Invega PO 9 mg qhs for psychosis. patient last received Inevga Trinza in early november and is due for next dose on 02/09, 819mg IM from [facility]. increase klonopin 1 qhs for anxiety. added zoloft 50 mg daily for mood/anxiety, added trazodone 100 mg qhs prn for insomnia. -When necessary Ativan and Haldol for agitation/aggression. -NRT - nicotine patch -SW on board for discharge planning. Encouraged the patient to participate in milieu. Currently awaiting deferral with physician/allergy/immunology and court date.
[2022-01-21] MEDS: NICOTINE 14MG/24HR PATCH TRANSDERM SCH (09:31)
[2022-01-21] MEDS: prednisoLONE ACETATE 1% OPHTH DROPS 5 ML BTL RIGHT EYE SCH ×2 (09:31→20:03)
[2022-01-21] MEDS: SERTRALINE 50 MG TAB PO SCH (09:32)
[2022-01-21] MEDS: PALIPERIDONE 3 MG TAB.ER.24 PO SCH ×2 (09:39→20:02)
[2022-01-21] MEDS: NON FORMULARY DRUG (Lisdexamfetamine Dimesylate [Vyvanse] 40 MG Capsule) PO SCH (09:54)
[2022-01-21] MEDS: clonazePAM 1 MG TAB PO SCH (20:02)
[2022-01-21] MEDS: PREGABALIN 100 MG CAP PO SCH (20:02)
[2022-01-21] MEDS: CYCLOBENZAPRINE 10 MG TAB PO SCH (20:03)
[2022-01-21] MEDS: FAMOTIDINE 20 MG TAB PO SCH (20:03)
[2022-01-22] MEDS: PREGABALIN 100 MG CAP PO SCH ×2 (08:47→19:34)
[2022-01-22] MEDS: NICOTINE 14MG/24HR PATCH TRANSDERM SCH (08:47)
[2022-01-22] MEDS: CYCLOBENZAPRINE 10 MG TAB PO SCH ×2 (08:47→19:33)
[2022-01-22] MEDS: SERTRALINE 50 MG TAB PO SCH (08:47)
[2022-01-22] MEDS: FAMOTIDINE 20 MG TAB PO SCH ×2 (08:47→19:34)
[2022-01-22] MEDS: NON FORMULARY DRUG (Lisdexamfetamine Dimesylate [Vyvanse] 40 MG Capsule) PO SCH (08:47)
[2022-01-22] MEDS: prednisoLONE ACETATE 1% OPHTH DROPS 5 ML BTL RIGHT EYE SCH ×2 (08:48→19:34)
--- NOTE | 2022-01-22 11:49 | P.PN ---
Progress Note - Text Progress Note Date: 01/22/22 Interval history: Patient was directable and agreeable to speak with medical writer. He reports "I feel better" but when asked to elaborate his thought process is concrete with poverty of thought. At this time patient denies any suicidal or homicidal ideations intent or plan. He denies auditory hallucinations currently, reports last voices were 2 nights ago. He reports visual hallucinations of seeing things "like cameras and stuff, like all over my room, in screws". He thinks that sometimes people are spying on him, appears paranoid. Patient reports side effect of daytime sedation from the medications. When discussing lowering the bedtime Klonopin to minimize morning sedation, he declines and prefers to keep the dose at 1 mg. He has been compliant with meds. Mental status exam: General Appearance: Patient appears to be stated age is alert, directable, and cooperative. Behavior: No agitated behavior. Patient is calm and directable. Speech: Patient's speech is fluent and nonpressured. Mood/Affect: Mood is improving mildly, affect is congruent and blunted. Suicidality/Homicidality: Patient denies having any suicidal or homicidal ideation intent or plan. Perceptions: Patient denies any auditory hallucinations, but reports visual hallucinations. Though content/process: There is evidence of delusional thought content. Thought process is concrete with poverty of thought. Memory and concentration: AOX3, grossly intact for the purposes of this session Judgment and insight: Improving mildly Assessment/Plan: Continue with current diagnosis. Patient continues to meet criteria for inpatient psychiatric admission for symptom stabilization and safety. Patient will be maintained on current psychotropic medication regimen. He declines lowering the bedtime Klonopin dose to minimize sedation. Monitor for medication compliance and for any psychotropic medication side effects. Will continue to monitor ongoing response to treatment. Encouraged participation in milieu.
[2022-01-22] MEDS: PALIPERIDONE 3 MG TAB.ER.24 PO SCH (19:33)
[2022-01-22] MEDS: clonazePAM 1 MG TAB PO SCH (19:34)
[2022-01-23] MEDS: LORazepam 1 MG TAB PO PRN ×2 (00:46→12:44)
[2022-01-23] MEDS: NON FORMULARY DRUG (Lisdexamfetamine Dimesylate [Vyvanse] 40 MG Capsule) PO SCH (09:03)
[2022-01-23] MEDS: CYCLOBENZAPRINE 10 MG TAB PO SCH ×2 (09:03→20:38)
[2022-01-23] MEDS: FAMOTIDINE 20 MG TAB PO SCH ×2 (09:03→20:38)
[2022-01-23] MEDS: prednisoLONE ACETATE 1% OPHTH DROPS 5 ML BTL RIGHT EYE SCH ×2 (09:03→20:39)
[2022-01-23] MEDS: NICOTINE 14MG/24HR PATCH TRANSDERM SCH (09:03)
[2022-01-23] MEDS: PREGABALIN 100 MG CAP PO SCH ×2 (09:04→20:39)
[2022-01-23] MEDS: SERTRALINE 50 MG TAB PO SCH (09:04)
--- NOTE | 2022-01-23 14:49 | P.PN ---
Progress Note - Text Progress Note Date: 01/23/22 Interval history: Patient was directable and agreeable to speak with insurance writer. He reports felling a "lot clearer and less foggy" because he is "staying away from the drugs and taking my medications like I'm supposed to". His thought process is more linear and coherent today. At this time patient denies any suicidal or homicidal ideations intent or plan. He is attending groups, and taking his medications. He denies auditory hallucinations currently, and he reports he continues to see cameras "everywhere, in screws, in light fixtures, behind my mirror, can see them moving". He asks me if they really are there, if there are cameras in his room, and he was told no, and he states "well I guess I'm seeing things." "I think people are listening in..." He feels he is not being "treated like a human being" here. He feels he needs to work on his trauma and has been crying out for help. He has been compliant with meds. He reports some eyelid twitching and requests Artane. He displays drug seeking behaviors during this assessment today and fixates on wanting something for sleep (states he wants some Ativan prescribed for sleep), also wants his Vyvanse, and Norflex. We discussed Benadryl as needed for sleep and EPS prophylaxis, but he states he will not take Benadryl. Mental status exam: General Appearance: Patient appears to be stated age, is wrapped in his blanket. Behavior: No agitated behavior. He has an irritable edge and superficially cooperative. Drug seeking behaviors noted. Speech: Patient's speech is fluent and verbose, but non-pressured. Mood/Affect: Mood is irritable, affect is congruent and blunted. Suicidality/Homicidality: Patient denies having any suicidal or homicidal ideation intent or plan. Perceptions: Patient denies any auditory hallucinations, but reports visual hallucinations of seeing cameras. Though content/process: There is evidence of paranoid/persecutory delusional thought content. Thought process is circumstantial. Memory and concentration: AOX3, grossly intact for the purposes of this session Judgment and insight: Improving mildly Assessment/Plan: Continue with current diagnosis. Patient continues to meet criteria for inpatient psychiatric admission for symptom stabilization and safety. Start Artane 2 mg TID for EPS. Patient will be maintained other current psychotropic medication regimen. Monitor for medication compliance and for any psychotropic medication side effects. Will continue to monitor ongoing response to treatment. Encouraged participation in milieu.
[2022-01-23] MEDS: TRIHEXYPHENIDYL 2 MG TAB PO SCH (17:18)
[2022-01-23] MEDS: clonazePAM 1 MG TAB PO SCH (20:38)
[2022-01-23] MEDS: PALIPERIDONE 3 MG TAB.ER.24 PO SCH (20:38)
[2022-01-24] MEDS: NICOTINE 14MG/24HR PATCH TRANSDERM SCH (07:54)
[2022-01-24] MEDS: SERTRALINE 50 MG TAB PO SCH (07:55)
[2022-01-24] MEDS: TRIHEXYPHENIDYL 2 MG TAB PO SCH ×2 (07:55→20:37)
[2022-01-24] MEDS: FAMOTIDINE 20 MG TAB PO SCH ×2 (07:55→20:35)
[2022-01-24] MEDS: prednisoLONE ACETATE 1% OPHTH DROPS 5 ML BTL RIGHT EYE SCH ×2 (07:56→20:36)
[2022-01-24] MEDS: NON FORMULARY DRUG (Lisdexamfetamine Dimesylate [Vyvanse] 40 MG Capsule) PO SCH (07:56)
[2022-01-24] MEDS: PREGABALIN 100 MG CAP PO SCH ×2 (07:57→20:36)
[2022-01-24] MEDS: CYCLOBENZAPRINE 10 MG TAB PO SCH ×2 (07:57→20:36)
--- NOTE | 2022-01-24 11:13 | P.PN ---
Progress Note - Text Progress Note Date: 01/24/22 Interval History: Patient was seen laying on the floor on his bed in his room. He was awoken by freelance copywriter today and agreeable to speak briefly. She states that he is doing a bit better today. He claims that he was feeling "off" over the weekend and states that he was feeling fairly paranoid. He claims that he feels very tired today with the new medication adjustment. He states that he wants to go home soon. He continues to have fairly superficial insight. He was caught using a vape in his room over the weekend. He claims that his mood and anxiety of been improving. He states that his appetite has been improving. He states that he feels more tired and slept throughout the night. He was fairly concrete and had poverty of content in his thought process. Less bizarre today and more directable. States that his appetite is fair. He was agreeable to have his medications adjusted. At this time patient denies any suicidal or homical ideations, intent or plan. Patient admits to hearing voices. He denies any visual hallucinations and denies any paranoia or delusions. Patient denies any side effects from the medications and has been compliant with meds. Mental Status Exam: General Appearance: Patient appears to be overweight, stated age is alert, attempts to cooperate, sitting at the side of his bed. Patient appears to have improving hygiene and grooming. Behavior: Patient is seated without any agitated behavior. Attempts to cooperate. Speech: Patient's speech is fluent and nonpressured. [place] Mood/Affect: Patient reports their mood is improving mildly, affect is congruent and constricted. Suicidality/Homicidality: Patient denies having any homicidal ideation intent or plan. Denies any suicidal ideations intent or plan Perceptions: Patient denies any visual hallucinations and admits to hearing voices. Though content/process: Less delusional today, more appropriate and goal oriented. [place]. Memory and concentration: AOX3, follows directions. Improving concentration span. Judgment and insight: Chronically poor, improving mildly IMPRESSIONS: Schizoaffective disorder Methamphetamine abuse Cannabis use disorder Nicotine dependence Plan: -Patient continues to meet criteria for inpatient psychiatric admission for symptom stabilization and safety. Patient has signed adult voluntary form and medication consent and was placed in patient's chart. -Medications: Invega PO 9 mg qhs for psychosis. patient last received Inevga Trinza in early november and is due for next dose on 02/09, 819mg IM from [facility]. klonopin 1 qhs for anxiety. zoloft 50 mg daily for mood/anxiety, trazodone 100 mg qhs prn for insomnia. decrease artane to 2 mg bid for eps reaction -When necessary Ativan and Haldol for agitation/aggression. -NRT - nicotine patch -SW on board for discharge planning. Encouraged the patient to participate in milieu. likely discharge tomorrow.
[2022-01-24] MEDS: LORazepam 1 MG TAB PO PRN (15:56)
[2022-01-24] MEDS: clonazePAM 1 MG TAB PO SCH (20:35)
[2022-01-24] MEDS: PALIPERIDONE 3 MG TAB.ER.24 PO SCH (20:36)
[2022-01-25 06:49] VITALS: BP 120/65; PULSE 98; RESP 16; TEMP 97.8
[2022-01-25] MEDS: NICOTINE 14MG/24HR PATCH TRANSDERM SCH (08:19)
[2022-01-25] MEDS: prednisoLONE ACETATE 1% OPHTH DROPS 5 ML BTL RIGHT EYE SCH (08:20)
[2022-01-25] MEDS: SERTRALINE 50 MG TAB PO SCH (08:20)
[2022-01-25] MEDS: FAMOTIDINE 20 MG TAB PO SCH (08:20)
[2022-01-25] MEDS: TRIHEXYPHENIDYL 2 MG TAB PO SCH (08:20)
[2022-01-25] MEDS: PREGABALIN 100 MG CAP PO SCH (08:20)
[2022-01-25] MEDS: NON FORMULARY DRUG (Lisdexamfetamine Dimesylate [Vyvanse] 40 MG Capsule) PO SCH (08:20)
[2022-01-25] MEDS: CYCLOBENZAPRINE 10 MG TAB PO SCH (08:20)
--- NOTE | 2022-01-25 10:02 | P.DS ---
Providers Date of admission: 01/19/22 04:05 Expected date of discharge: 01/25/22 Attending physician: Jose Juan Guzman MD Consults: 01/19/22 04:17 Consult Physician Routine Consulting Provider: Rai Souza Consult Reason/Comments: For H & P for Medical Follow Up Do you want consulting provider notified?: Yes Primary care physician: Darion Larson - Discharge Diagnosis(es) (1) Schizoaffective disorder Current Visit: Yes Status: Acute Priority: High (2) Methamphetamine abuse Current Visit: Yes Status: Acute Priority: High (3) Cannabis use disorder, mild, abuse Current Visit: Yes Status: Acute Priority: Medium (4) Nicotine dependence Current Visit: Yes Status: Acute Priority: Low Hospital Course: Admission HPI: Admission note was completed by life insurance underwriter "Patient is a 26-year-old male with history of schizoaffective disorder. Patient presented to the hospital yesterday after an overdose on medications as a suicide attempt. According to ER report patient had taken multiple medications at around 3:00. Patient has a history of auditory and visual hallucinations and also history of schizoaffective disorder. Patient's UDS is positive for methamphetamine and ma rijuana. Patient was seen in the hallway today and agreeable to speak to life insurance underwriter. Patient was fairly intrusive and appeared to be fairly paranoid. He claims that he came to the hospital "to get better" and also claimed that he was "seeing the signs". He claims that he does not trust staff members and wants to get out of the hospital. He did mention that he was using methamphetamine however did not give a straight answer as to how much he is using and how often. He was rambling at times was illogical and had loose associations. He was fairly defensive about his drug use and being in the hospital. He claims that "I couldn't handle my stress". He does claim that he is a substance user. He states that he also "wants to talk to CPS" and also spoke about the drug task force working with [facility]. He states that his sleep has been poor lately. Patient denies any suicidal or homicidal ideations intent or plan. At this time patient denies any auditory or visual hallucinations. Patient admits to using methamphetamine and marijuana along with cigarettes. Patient was preoccupied with the iPad on life insurance underwriter's desk and believes that he was "recording the conversation" and patient stood up and attempted to [place] life insurance underwriter in the office, the panic button was depressed and patient was directed out of the office and received Po haldol and ativan however patient was still intrusive aggressive and paranoid and was getting more agitated and received a second dose of Haldol and Ativan however it was an IM." Hospital course: Upon admission to the unit patient was directable and agreeable to commence treatment and signed adult voluntary form. Patient got along well with other patients on the unit and followed unit protocol. Patient was compliant with the medications and denied any side effects throughout hospital course. Patient was initially fairly paranoid and aggressive and required several prn meds initially during hospitalization. Patient was started on oral Invega titrated up the dose of 9 mg daily at bedtime for psychosis. Patient apparently received Invega Trinza in november and will be due for his next dose of 819mg IM on 02/09. Continue with Klonopin 1 mg daily at bedtime for anxiety. Zoloft 50 mg daily for mood/anxiety, trazodone 100 mg daily at bedtime when necessary for insomnia. Artane was decreased down to 2 mg daily at bedtime for EPS prophylaxis. Patient spoke of his stressors and engaged in therapy both group and individual. Patient was also seen by medical team for history and physical exam. Throughout the course of the hospitalization patient gradually improved with regards to mood, paranoia/psychosis, sleep and returned back to their baseline level of functioning. On the day of discharge patient denied any suicidal or homicidal ideations intent or plan denied any auditory or visual hallucinations. Patient endorsed wanting to live for his health and family. The patient denied any access to guns or weapons. Patient denied any paranoia and did not endorse any delusions. Patient does have a significant history of substance abuse and was counseled on abstaining from all substances including alcohol and marijuana. Patient was offered however declined inpatient substance-abuse rehab. Patient elected to do outpatient substance use treatment program through [facility]. Patient was also counseled on the medications and need for regular compliance and was encouraged to follow-up with their outpatient appointment for mental health and also for primary care. Prior to discharge a family meeting will be arranged by social science professor to answer any questions and ensure safety upon discharge. Mental status exam: General Appearance: Patient appears to be overweight, stated age is alert, pleasant, and cooperative. Patient is in no acute distress and has improved hygiene and grooming Behavior: Patient is calmly seated without any agitated behavior. Speech: Patient's speech is fluent and nonpressured. Mood/Affect: Patient reports their mood is "good", affect is congruent and constricted Suicidality/Homicidality: Patient denies having any suicidal or homicidal ideation intent or plan. Perceptions: Patient denies any auditory or visual hallucinations. Though content/process: There is no evidence of any delusional thought content and thought process is linear and goal-directed. Memory and concentration: AOX3, grossly intact for the purposes of this session. Can spell "WORLD" backwards correctly. Judgment and insight: chronically poor, however has improved with guarded prognosis Impression: Schizoaffective disorder Methamphetamine abuse Cannabis use disorder mild Nicotine dependence Plan: -Continue with discharge today as patient has improved and stabilized psychiatrically and is not currently an imminent threat to himself and/or others. Patient will remain at chronically elevated risk for harm to self and/or others due to his impulsivity and polysubstance abuse. -Continue medications: Paliperidone oral 9 mg daily at bedtime for psychosis. Patient is due to receive his next dose of 819 mg IM of Invega Trinza on 02/09. klonopin 1 mg qhs for anxiety, zoloft 50 mg daily for anxiety/mood, trazodone 100 mg qhs prn for insomnia. artane 2 mg qhs for eps prophylaxis. -Patient was counseled on the need for medication compliance and appropriate follow-up at mental health and also primary care for medical issues. Patient verbalized understanding and agreed. -Social work to arrange for and conduct family meeting to ensure safety upon discharge and answer any questions/concerns. Social work also to arrange for patients follow up appointments with [facility] for psychiatric care along with follow up with primary care provider. -Patient counseled on abstaining from recreational drugs and marijuana and alcohol. Was informed/educated on the adverse effects on their physical and mental health. Patient verbally agreed and understood. Patient was offered substance abuse treatment however declined at this time. -Patient was instructed to return to the hospital or seek immediate medical care if their psychiatric or medical symptoms do worsen or reoccur. Allergies Allergy/AdvReac Type Severity Reaction Status Date / Time No Known Allergies Allergy Verified 01/19/22 04:37 Laboratory Results WBC 7.4 k/uL (3.8-10.6) 01/18/22 17:32 RBC 5.40 m/uL (4.30-5.90) 01/18/22 17:32 Hgb 15.7 gm/dL (13.0-17.5) 01/18/22 17:32 Hct 48.4 % (39.0-53.0) 01/18/22 17:32 MCV 89.7 fL (80.0-100.0) 01/18/22 17:32 MCH 29.1 pg (25.0-35.0) 01/18/22 17:32 MCHC 32.4 g/dL (31.0-37.0) 01/18/22 17:32 RDW 12.6 % (11.5-15.5) 01/18/22 17:32 Plt Count 225 k/uL (150-450) 01/18/22 17:32 MPV 6.5 01/18/22 17:32 Neutrophils % 53 % 01/18/22 17:32 Lymphocytes % 32 % 01/18/22 17:32 Monocytes % 9 % 01/18/22 17:32 Eosinophils % 1 % 01/18/22 17:32 Basophils % 1 % 01/18/22 17:32 Neutrophils # 3.9 k/uL (1.3-7.7) 01/18/22 17:32 Lymphocytes # 2.4 k/uL (1.0-4.8) 01/18/22 17:32 Monocytes # 0.7 k/uL (0-1.0) 01/18/22 17:32 Eosinophils # 0.1 k/uL (0-0.7) 01/18/22 17:32 Basophils # 0.1 k/uL (0-0.2) 01/18/22 17:32 Sodium 141 mmol/L (137-145) 01/18/22 17:32 Potassium 3.8 mmol/L (3.5-5.1) 01/18/22 17:32 Chloride 105 mmol/L (98-107) 01/18/22 17:32 Carbon Dioxide 29 mmol/L (22-30) 01/18/22 17:32 Anion Gap 7 mmol/L 01/18/22 17:32 BUN 15 mg/dL (9-20) 01/18/22 17:32 Creatinine 0.92 mg/dL (0.66-1.25) 01/18/22 17:32 Est GFR (CKD-EPI)AfAm >90 (>60 ml/min/1.73 sqM) 01/18/22 17:32 Est GFR (CKD-EPI)NonAf >90 (>60 ml/min/1.73 sqM) 01/18/22 17:32 Glucose 97 mg/dL (74-99) 01/18/22 17:[address] Glu mg/dL 97 01/18/22 17:32 Hemoglobin A1c 5.0 % (0.0-6.0) 01/18/22 17: Calcium 9.3 mg/dL (8.4-10.2) 01/18/22 17: Total Bilirubin 0.5 mg/dL (0.2-1.3) 01/18/22 17:32 AST 28 U/L (17-59) 01/18/22 17: ALT 26 U/L (4-49) 01/18/22 17: Alkaline Phosphatase 62 U/L (38-126) 01/18/22 17:32 Total Protein 7.9 g/dL (6.3-8.2) 01/18/22: Albumin 4.6 g/dL (3.5-5.0) 01/18/22 17:32 Triglycerides 197.00 mg/dL (0.00-149.00) H 01/18/22 17: Cholesterol 179.00 mg/dL (0.00-200.00) 01/18/22 17: LDL Cholesterol, Calc 85.1 mg/dL (0.0-131.0) 01/18/22 17: VLDL Cholesterol, Calc 39.40 mg/dL (5.00-40.00) 01/18/22: HDL Cholesterol 54.50 mg/dL (40.00-60.00) 01/18/22 17: Cholesterol/HDL Ratio 3.28 Ratio 01/18/22 17: TSH 2.130 mIU/L (0.465-4.680) 01/18/22 17:32 Urine Color Yellow 01/19/22 00:00 Urine Appearance Turbid (Clear) 01/19/22 00:00 Urine pH 6.0 (5.0-8.0) 01/19/22 00:00 Ur Specific [place] 1.034 (1.001-1.035) 01/19/22 00:00 Urine Protein Trace (Negative) H 01/19/22 00:00 Urine Glucose (UA) Negative (Negative) 01/19/22 00:00 Urine Ketones Negative (Negative) 01/19/22 00:00 Urine Blood Negative (Negative) 01/19/22 00:00 Urine Nitrite Negative (Negative) 01/19/22 00:00 Urine Bilirubin Negative (Negative) 01/19/22 00:00 Urine Urobilinogen 2.0 mg/dL (<2.0) 01/19/22 00:00 Ur Leukocyte Esterase Trace (Negative) H 01/19/22 00:00 Urine RBC 3 /hpf (0-5) 01/19/22 00:00 Urine WBC 11 /hpf (0-5) H 01/19/22 00:00 Amorphous Sediment Rare /hpf (None) H 01/19/22 00:00 Urine Bacteria Occasional /hpf (None) H 01/19/22 00:00 Urine Mucus Moderate /hpf (None) H 01/19/22 00:00 Salicylates <1.0 mg/dL 01/18/22 17:32 Urine Opiates Screen Not Detected (NotDetected) 01/18/22 18:49 Ur Oxycodone Screen Not Detected (NotDetected) 01/18/22 18:49 Urine Methadone Screen Not Detected (NotDetected) 01/18/22 18:49 Ur Propoxyphene Screen Not Detected (NotDetected) 01/18/22 18:49 Acetaminophen <10.0 ug/mL 01/18/22 17:32 Ur Barbiturates Screen Not Detected (NotDetected) 01/18/22 18:49 U Tricyclic Antidepress Not Detected (NotDetected) 01/18/22 18:49 Ur Phencyclidine Scrn Not Detected (NotDetected) 01/18/22 18:49 Ur Amphetamines Screen Not Detected (NotDetected) 01/18/22 18:49 U Methamphetamines Scrn Detected (NotDetected) H 01/18/22 18:49 U Benzodiazepines Scrn Not Detected (NotDetected) 01/18/22 18:49 Urine Cocaine Screen Not Detected (NotDetected) 01/18/22 18:49 U Marijuana (THC) Screen Detected (NotDetected) H 01/18/22 18:49 Serum Alcohol <10 mg/dL 01/18/22 17:32 Coronavirus (PCR) Not Detected (Not Detectd) 01/19/22 02:54 Vital Signs Temp 97.8 F 01/25/22 06:48 Pulse 98 01/25/22 06:48 Resp 16 01/25/22 06:48 BP 120/65 01/25/22 06:48 Pulse Ox 98 01/25/22 06:48 Patient Condition at Discharge: Stable Plan - Discharge Summary Discharge Rx Participant: No New Discharge Prescriptions: New traZODone HCL [Desyrel] 100 mg PO HS PRN 14 Days tab PRN Reason: Insomnia Famotidine [Pepcid] 20 mg PO BID 30 Days tab Trihexyphenidyl [Artane] 2 mg PO HS 30 Days tab Nicotine 14Mg/24Hr Patch [Habitrol] 1 patch TRANSDERM DAILY 14 Days patch Paliperidone [Invega] 9 mg PO HS 30 Days clonazePAM [KlonoPIN] 1 mg PO HS PRN 14 Days tab PRN Reason: Anxiety Acetaminophen Tab [Tylenol] 650 mg PO Q4HR PRN tab PRN Reason: Pain/Discomfort Sertraline [Zoloft] 50 mg PO DAILY 30 Days tab Continue Albuterol Inhaler [Ventolin Hfa Inhaler] 2 puff INHALATION RT-Q4H PRN PRN Reason: Shortness Of Breath Pregabalin [Lyrica] 100 mg PO BID Lisdexamfetamine Dimesylate [Vyvanse] 40 mg PO DAILY@0900 prednisoLONE ACETATE 1% OPHTH [Pred Forte 1%] 1 drop RIGHT EYE BID Orphenadrine [Norflex] 100 mg PO BID Paliperidone Palmitate [Invega Trinza] 819 mg IM Q84H Fluticasone Nasal [place] [Flonase Nasal [place]] 1 spray EA NOSTRIL DAILY PRN PRN Reason: Allergy Symptoms Discontinued Lisdexamfetamine Dimesylate [Vyvanse] 20 mg PO DAILY@0900 Paliperidone [Invega] 3 mg PO DAILY PRN PRN Reason: Anxiety Ondansetron [Zofran] 4 mg PO Q4H PRN PRN Reason: Nausea clonazePAM [KlonoPIN] 0.5 mg PO BID Discharge Medication List Albuterol Inhaler [Ventolin Hfa Inhaler] 2 puff INHALATION RT-Q4H PRN 01/18/22 [History] Fluticasone Nasal [place] [Flonase Nasal [place]] 1 spray EA NOSTRIL DAILY PRN 01/18/22 [History] Lisdexamfetamine Dimesylate [Vyvanse] 40 mg PO DAILY@0900 01/18/22 [History] Orphenadrine [Norflex] 100 mg PO BID 01/18/22 [History] Paliperidone Palmitate [Invega Trinza] 819 mg IM Q84H 01/18/22 [History] Pregabalin [Lyrica] 100 mg PO BID 01/18/22 [History] prednisoLONE ACETATE 1% OPHTH [Pred Forte 1%] 1 drop RIGHT EYE BID 01/18/22 [History] Acetaminophen Tab [Tylenol] 650 mg PO Q4HR PRN tab 01/25/22 [Rx] Famotidine [Pepcid] 20 mg PO BID 30 Days tab 01/25/22 [Rx] Nicotine 14Mg/24Hr Patch [Habitrol] 1 patch TRANSDERM DAILY 14 Days patch 01/25/22 [Rx] Paliperidone [Invega] 9 mg PO HS 30 Days 01/25/22 [Rx] Sertraline [Zoloft] 50 mg PO DAILY 30 Days tab 01/25/22 [Rx] Trihexyphenidyl [Artane] 2 mg PO HS 30 Days tab 01/25/22 [Rx] clonazePAM [KlonoPIN] 1 mg PO HS PRN 14 Days tab 01/25/22 [Rx] traZODone HCL [Desyrel] 100 mg PO HS PRN 14 Days tab 01/25/22 [Rx] Follow up Appointment(s)/Referral(s): [facility] [Outside] - 01/27/22 10:00 am (01-27-22 @ 10 with Joey 01-31-22 @ 1:00 with Vianca both at [facility] ) Darion Larson MD [Primary Care Provider] - 1-2 days Activity/Diet/Wound Care/Special Instructions: Activity and diet as tolerated. Avoid the use of street drugs and alcohol. Take all medications as prescribed. When you are in need of refills on your medications please contact your medical provider and/or outpatient psychiatrist to have this done. Please go to scheduled outpatient appointment for aftercare treatment. If symptoms return or become worse, call the crisis line at and/or go to the nearest emergency room for evaluation Discharge Disposition: HOME SELF-CARE
[2022-02-09] MEDS ORDERED: PALIPERIDONE PALMITATE 819 MG/2.63 ML IM SCH (09:00)
== END 2022-01-25 17:40 | disposition home or self-care (01) | DRG 885 ==
LOC: EC 15:29 → 3MHU 01-19 04:05
PROVIDERS: ADMIT Psychiatry & Neurology Psychiatry; ATTEND Psychiatry & Neurology Psychiatry
DX: F25.9 Schizoaffective disorder, unspecified (principal); F15.10 Other stimulant abuse, uncomplicated; F17.210 Nicotine dependence, cigarettes, uncomplicated; F31.9 Bipolar disorder, unspecified; F43.10 Post-traumatic stress disorder, unspecified; G47.00 Insomnia, unspecified; G89.29 Other chronic pain; K21.9 Gastro-esophageal reflux disease without esophagitis; E66.9 Obesity, unspecified; F12.90 Cannabis use, unspecified, uncomplicated; M79.7 Fibromyalgia; T50.902A Poisoning by unspecified drugs, medicaments and biological substances, intentional self-harm, initial encounter; Z68.35 Body mass index [BMI] 35.0-35.9, adult; Z76.5 Malingerer [conscious simulation]; Z79.899 Other long term (current) drug therapy; Z81.8 Family history of other mental and behavioral disorders; Z20.822 Contact with and (suspected) exposure to COVID-19
CPT/HCPCS: 36415; 80053; 80061; 80143; 80179; 80306; 80320; 81001; 82075; 83036; 84443; 85025; 87635; 93005; 96360; 99285

== ENCOUNTER 2022-03-18 17:33 | Emergency (ER) | payer MEDICARE, OTHER ==
--- NOTE | 2022-03-18 18:16 | ED ---
Psych HPI - General Stated Complaint: detox Time Seen by Provider: 03/18/22 18:13 Source: RN notes reviewed - History of Present Illness Initial Comments: BRIEF encounter in triage: Patient in no acute distress. Talking on telephone. Patient states that he is on multiple controlled substances and has also been abusing methamphetamine. He states he has not been sleeping for about 2 or 3 days. Patient states he is here for mental health evaluation. Denies suicidality. No headache, no fever or chills, no changes in vision or hearing, no sore throat or difficulty with speech, no neck pain, no chest pain or shortness of breath, no abdominal pain, no nausea or vomiting, no changes in urination or bowel movements, no numbness or tingling, no extremity pain, no skin rashes or lesions. POSITIVE sleep disturbance MD Complaint: feels depressed - Related Data Home Medications Medication Instructions Recorded Confirmed Albuterol Inhaler [Ventolin Hfa 2 puff INHALATION RT-Q4H PRN 01/18/22 01/19/22 Inhaler] Fluticasone Nasal [place] [Flonase 1 spray EA NOSTRIL DAILY PRN 01/18/22 01/19/22 Nasal [place]] Lisdexamfetamine Dimesylate 40 mg PO DAILY@0900 01/18/22 01/19/22 [Vyvanse] Orphenadrine [Norflex] 100 mg PO BID 01/18/22 01/19/22 Paliperidone Palmitate [Invega 819 mg IM Q84H 01/18/22 01/19/22 Trinza] Pregabalin [Lyrica] 100 mg PO BID 01/18/22 01/19/22 prednisoLONE ACETATE 1% OPHTH 1 drop RIGHT EYE BID 01/18/22 01/19/22 [Pred Forte 1%] Previous Rx's Medication Instructions Recorded Acetaminophen Tab [Tylenol] 650 mg PO Q4HR PRN tab 01/25/22 Famotidine [Pepcid] 20 mg PO BID 30 Days tab 01/25/22 Nicotine 14Mg/24Hr Patch [Habitrol] 1 patch TRANSDERM DAILY 14 Days 01/25/22 patch Paliperidone [Invega] 9 mg PO HS 30 Days 01/25/22 Sertraline [Zoloft] 50 mg PO DAILY 30 Days tab 01/25/22 Trihexyphenidyl [Artane] 2 mg PO HS 30 Days tab 01/25/22 clonazePAM [KlonoPIN] 1 mg PO HS PRN 14 Days tab 01/25/22 traZODone HCL [Desyrel] 100 mg PO HS PRN 14 Days tab 01/25/22 Allergies Allergy/AdvReac Type Severity Reaction Status Date / Time No Known Allergies Allergy Verified 03/18/22 13:44 Review of Systems ROS Statement: Those systems with pertinent positive or pertinent negative responses have been documented in the HPI. ROS Other: All systems not noted in ROS Statement are negative. Past Medical History Past Medical History: No Reported History Additional Past Medical History / Comment(s): Allergies, burn to right eye, narcalepsy History of Any Multi-Drug Resistant Organisms: None Reported Past Surgical History: No Surgical Hx Reported Additional Past Surgical History / Comment(s): foot surgery for cellulitis, multiple right eye surgeries Past Anesthesia/Blood Transfusion Reactions: No Reported Reaction Past Psychological History: ADD/ADHD, Anxiety, Bipolar, Depression, PTSD, Schizoaffective Disorder Smoking Status: Current every day smoker Past Alcohol Use History: Daily Past Drug Use History: Methamphetamine - Past Family History Mother Additional Family Medical History / Comment(s): Depression. Maybe Bipolar Father Additional Family Medical History / Comment(s): Bipolar/ Paranoid schizophrenia General Exam - General Exam Comments Initial Comments: Nontoxic-appearing 26-year-old male in no distress. General appearance: alert, in no apparent distress Head exam: Present: atraumatic, normocephalic, normal inspection Eye exam: Present: normal appearance, EOMI ENT exam: Present: normal exam, normal oropharynx. Absent: mucous membranes dry Neck exam: Present: normal inspection. Absent: tenderness, full ROM, lymphadenopathy Respiratory exam: Present: normal lung sounds bilaterally. Absent: respiratory distress, wheezes, rales, rhonchi, stridor Cardiovascular Exam: Present: regular rate, normal rhythm, normal heart sounds. Absent: systolic murmur, diastolic murmur, rubs, gallop, clicks GI/Abdominal exam: Present: soft. Absent: distended, tenderness Extremities exam: Present: normal inspection. Absent: full ROM Back exam: Present: normal inspection Neurological exam: Present: alert, oriented X3, CN II-XII intact. Absent: motor sensory deficit Psychiatric exam: Present: anxious, other (Difficult to ascertain on initial eval). Absent: suicidal ideation Skin exam: Present: warm, dry, intact, normal color. Absent: rash Course Vital Signs 03/18/22 03/19/22 18:23 03:00 Temperature 97.7 F Pulse Rate 113 H 85 Respiratory 20 16 Rate Blood Pressure 129/80 119/66 O2 Sat by Pulse 100 96 Oximetry - Reevaluation(s) Reevaluation #1: 03/19/22 01:51 Medical record is reviewed Symptoms are improved here in the emergency department Patient is informed of results and questions answered Patient in no distress Patient denying suicidality or homicidality Medical Decision Making - Lab Data Lab Results 03/18/22 Range/Units 18:26 Urine Opiates Screen Not Detected (NotDetected) Ur Oxycodone Screen Not Detected (NotDetected) Urine Methadone Screen Not Detected (NotDetected) Ur Propoxyphene Screen Not Detected (NotDetected) Ur Barbiturates Screen Not Detected (NotDetected) U Tricyclic Antidepress Not Detected (NotDetected) Ur Phencyclidine Scrn Not Detected (NotDetected) Ur Amphetamines Screen Detected H (NotDetected) U Methamphetamines Scrn Detected H (NotDetected) U Benzodiazepines Scrn Not Detected (NotDetected) Urine Cocaine Screen Not Detected (NotDetected) U Marijuana (THC) Screen Detected H (NotDetected) Disposition Clinical Impression: Acute anxiety, Methamphetamine abuse, Sleep disturbance Disposition: HOME SELF-CARE Condition: Stable Instructions (If sedation given, give patient instructions): Methamphetamine Abuse (ED), Insomnia (ED) Additional Instructions: Follow-up with your regular physician as directed. Return to the ER immediately if any symptoms worsen, new symptoms arise, or any other problems develop. Is patient prescribed a controlled substance at d/c from ED?: No Referrals: Darion Larson MD [Primary Care Provider] - 1-2 days Time of Disposition: 02:41
[2022-03-18 18:26] VITALS: TEMP 97.7
[2022-03-18 19:10] LABS: Amphetamine Screen,Urine Detected (NotDetected); Barbiturate Screen,Urine Not Detected (NotDetected); Benzodiazepines Screen,Urine Not Detected (NotDetected); Cocaine Screen,Urine Not Detected (NotDetected); Methadone Screen, Urine Not Detected (NotDetected); Opiate Screen,Urine Not Detected (NotDetected); Oxycodone Screen, Urine Not Detected (NotDetected); Phencyclidine Screen,Urine Not Detected (NotDetected); Tricyclic Antidepressant,Urine Not Detected (NotDetected); Urn Cannabinoid Scrn Detected (NotDetected)
[2022-03-19 03:01] VITALS: BP 119/66; PULSE 85; RESP 16
== END 2022-03-19 04:08 | disposition home or self-care (01) ==
LOC: EC 17:33
DX: F17.200 Nicotine dependence, unspecified, uncomplicated (principal); F15.10 Other stimulant abuse, uncomplicated; G47.9 Sleep disorder, unspecified; F41.9 Anxiety disorder, unspecified
CPT/HCPCS: 80306; 99283

== ENCOUNTER 2022-04-19 17:32 | Inpatient (IN) | payer MEDICARE, MEDICAID ==
[2022-04-19] MEDS ORDERED: MAGNESIUM HYDROXIDE 2,400 MG/10 ML CUP PO PRN (18:08)
[2022-04-19] MEDS ORDERED: ACETAMINOPHEN TAB 325 MG TAB PO PRN (18:08)
[2022-04-19] MEDS ORDERED: MAG HYDROX/AL HYDROX/SIMETH 30 ML CUP PO PRN (18:08)
[2022-04-19] MEDS: HALOPERIDOL LACTATE 5 MG/ML 1 ML VIAL IM PRN (21:13)
[2022-04-19] MEDS: LORazepam 2 MG/ML INJ IM PRN (21:13)
[2022-04-19] MEDS: NICOTINE 14MG/24HR PATCH TRANSDERM SCH (21:35)
[2022-04-20] MEDS: NICOTINE 14MG/24HR PATCH TRANSDERM SCH (10:01)
[2022-04-20] MEDS ORDERED: clonazePAM 0.5 MG TAB PO STA (10:58)
[2022-04-20] MEDS: TRIHEXYPHENIDYL 2 MG TAB PO SCH ×2 (12:15→16:44)
[2022-04-20] MEDS: haloperidoL 5 MG TAB PO PRN (13:29)
--- NOTE | 2022-04-20 14:06 | P.HP ---
Psychiatric H&P - . H&P Date: 04/20/22 History & Physical: Allergies Allergy/AdvReac Type Severity Reaction Status Date / Time No Known Allergies Allergy Verified 03/18/22 13:44 Vital Signs Temp 97.8 F 04/19/22 21:02 Pulse 83 04/19/22 21:02 Resp 18 04/19/22 21:02 BP 127/60 04/19/22 21:02 Pulse Ox FiO2 Intake & Output 04/19/22 04/20/22 04/20/22 18:59 06:59 18:59 Weight 113.398 kg 113.4 kg 04/20/22 14:05 IDENTIFYING DATA: Patient is a single, unemployed, 26-year-old male with a significant history of schizoaffective disorder who presented to the hospital from [facility] in [place] for psychosis. HPI: Patient presented to the hospital on 04/19/2022, brought in to our hospital after being transferred from [facility] under petition and certification for worsening psychosis. The patient presented to the [place] ER barefoot and endorsing significant delusions and paranoia believing "the Feds are going to kill me." Reportedly, the patient was noted to be disorganized and actively hallucinating. He is also noncompliant with his medications and appointments. Upon assessment on the psychiatric unit, the patient does admit to worsening psychotic symptoms including worsening auditory hallucinations, paranoia, and confusion. He is however denying any suicidal or homicidal ideation, intention, and/or plan. The patient does admit that he has not been in adherent with his medications however has been receiving Invega Trinza as scheduled as is due for his next injection on 05/11/2022. The patient is unable to identify any acute stressors that have led up to his current presentation. He is admitting to auditory hallucinations as well as generalized paranoia and feeling that the government is after him. The patient does report elevated anxiety and depression. He is agreeable to sign himself voluntarily into the psychiatric unit to address his psychosis and mood stability. PAST PSYCHIATRIC HISTORY: Patient states that he has a previous diagnosis of schizoaffective disorder and methamphetamine use disorder. The patient has been. She prescribed trazodone, Klonopin, Artane, Zoloft, Invega, and is currently also on invega trinza. Patient was last hospitalized on their psychiatric unit in January 2022. He is supposed to follow with [facility] however has been nonadherent with his follow-ups. Patient denies any prior attempts at suicide. PMH: Patient denies any medical problems. ALLERGIES: NO KNOWN DRUG ALLERGIES. CHEMICAL DEPENDENCY HISTORY: The patient does have a history of methamphetamine use however is denying any substance use to this provider today. FAMILY PSYCHIATRIC/SUBSTANCE USE HISTORY: No reported history. SOCIAL HISTORY: Patient is currently homeless and lives in [place]. MENTAL STATUS EXAM: General Appearance: Patient appears to be stated age is alert, directable, and attempts to cooperate. Patient appears to have fair hygiene and grooming. Behavior: Patient is seated without any agitated behavior. Eye contact is intermittent. Speech: Patient's speech is fluent and nonpressured. Mood/Affect: Patient reports their mood is "feeling a little better," affect is congruent and constricted. Suicidality/Homicidality: Patient is denying any suicidal or homicidal ideation. Perceptions: Patient denies any visual hallucinations however the patient does endorse auditory hallucinations. Though content/process: The patient does endorse some bizarre delusions of persecution and paranoia. Memory and concentration: AOX3, grossly intact for the purposes of this session. Can spell "WORLD" backwards Judgment and insight: poor STRENGTHS/WEAKNESSES: Strength is that the patient appears to be in relatively good health. Mrs. that the patient is nonadherent with treatment. He also engages in substance use. INTELLECT: average IMPRESSIONS: Schizoaffective disorder Methamphetamine use disorder Cannabis use disorder Nicotine dependence PLAN: -Patient is admitted under involuntary however converted to voluntary status to MHU for stabilization of psychiatric symptoms and safety. Patient signed adult voluntary form and medication consent and is placed in patient's chart. -Medications : Will start patient on Klonopin 0.5 mg by mouth every morning and 1 mg by mouth daily at bedtime for anxiety Invega 1.5 mg by mouth at bedtime for psychosis; patient is due for his Invega Trinza on 05/11/2022. Artane 2 mg 3 times a day for EPS symptoms Effexor XR 75 mg daily for depression/anxiety -Ativan and Haldol PRN for agitation/aggression -Patient was counselled on substance abuse and desired to cut back on use -Patient was informed of the risks, benefits and side effects of the medication and patient verbally consented to taking the medications. Patient signed med consent form and was placed in chart. -Internal Medicine consult to perform medical evaluation and physical. -NRT - nicotine patch -SW on board for discharge planning. Encourage patient to participate in groups to work on coping skills. 04/20/22 14:06
--- NOTE | 2022-04-20 16:32 | P.CONS ---
History of Present Illness - Reason for Consult Consult date: 04/20/22 Medical management Requesting physician: Gerard Floyd - Chief Complaint Psychosis - History of Present Illness This is a 26-year-old patient who follows with Dr. Major.. As per psychiatrist HPI: Patient presented to the hospital on 04/19/2022, brought in to our hospital after being transferred from [facility] under petition and certification for worsening psychosis. The patient presented to the [place] ER barefoot and endorsing significant delusions and paranoia believing "the Feds are going to kill me." Reportedly, the patient was noted to be disorganized and actively hallucinating. He is also noncompliant with his medications and appointments. Upon assessment on the psychiatric unit, the patient does admit to worsening ps ychotic symptoms including worsening auditory hallucinations, paranoia, and confusion. He is however denying any suicidal or homicidal ideation, intention, and/or plan. The patient does admit that he has not been in adherent with his medications however has been receiving Invega Trinza as scheduled as is due for his next injection on 05/11/2022. The patient is unable to identify any acute stressors that have led up to his current presentation. He is admitting to auditory hallucinations as well as generalized paranoia and feeling that the government is after him. The patient does report elevated anxiety and depression. He is agreeable to sign himself voluntarily into the psychiatric unit to address his psychosis and mood stability. He has chronic pain issues including herniated disc he described the back. Possible diagnosis of fibromyalgia. No fever no chills. Reflux, not sleeping well.. Blunt injury to the right eye many years ago and can only perceive light. smoke daily marijuana sometimes up to 5-6 joints a day. smokes cigarettes. Review of systems: GEN.: None EYES: Poor vision right eye HEENT: None NECK: None RESPIRATORY: None CARDIOVASCULAR: None GASTROINTESTINAL: None GENITOURINARY: None MUSCULOSKELETAL: None LYMPHATICS: None HEMATOLOGICAL: None PSYCHIATRY: As above NEUROLOGICAL: None Past medical history to include: PTSD, schizoaffective disorder, blunt injury to right eye, Social history: Possibly homeless. Smokes about a pack a day. This marijuana daily can go up to 5-6 joints a day sometimes. Also methamphetamines. Not employed Family history: Bipolar Physical examination: VITAL SIGNS: 97.8, 83, 18, 127/60, GENERAL: BMI 33.9, sitting up in chair, comfortable EYES: Damage and hazy right eye HEENT: External appearance of nose and ears normal, oral cavity grossly normal. Ears pierced NECK: JVD not raised; masses not palpable. HEART: First and second heart sounds are normal; no edema. LUNGS: Respiratory rate normal; clear to auscultation. ABDOMEN: Soft, nontender, liver spleen not palpable, no masses palpable. PSYCH: Alert and oriented x3; mood and affect anxious. MUSCULOSKELETAL:No Clubbing/cyanosis;muscles-grossly intact NEUROLOGICAL: Cranial nerves grossly intact; no facial asymmetry, power and sensation grossly intact. LYMPHATICS: No lymph nodes palpable in the axilla and neck Assessment and plan: -Chronic nicotine dependence, cigarette smoker Nicotine patch. Advised against -Schizoaffective disorder Follow with psychiatry -Methamphetamine use disorder -Recreational marijuana use counseled -Obesity BMI 33.9 Weight loss measures -Acute insomnia from psychiatry conditions -GERD Pepcid 20 mg twice a day -Chronic pain from history of fibromyalgia with herniated disc. Did talk to the patient. He is not taking his Lyrica for a while. Told him to do some active walking. In gentle exercises. Thank you Dr. Floyd Past Medical History Past Medical History: No Reported History Additional Past Medical History / Comment(s): Allergies, burn to right eye, narcalepsy History of Any Multi-Drug Resistant Organisms: None Reported Past Surgical History: No Surgical Hx Reported Additional Past Surgical History / Comment(s): foot surgery for cellulitis, multiple right eye surgeries Past Anesthesia/Blood Transfusion Reactions: No Reported Reaction Past Psychological History: ADD/ADHD, Anxiety, Bipolar, Depression, PTSD, Schizoaffective Disorder Smoking Status: Current every day smoker Past Alcohol Use History: Daily Past Drug Use History: Methamphetamine - Past Family History Mother Additional Family Medical History / Comment(s): Depression. Maybe Bipolar Father Additional Family Medical History / Comment(s): Bipolar/ Paranoid schizophrenia Medications and Allergies Home Medications Medication Instructions Recorded Confirmed Type Albuterol Inhaler [Ventolin Hfa 2 puff INHALATION RT-Q4H PRN 01/18/22 01/19/22 History Inhaler] Fluticasone Nasal [place] [Flonase 1 spray EA NOSTRIL DAILY PRN 01/18/22 01/19/22 History Nasal [place]] Lisdexamfetamine Dimesylate 40 mg PO DAILY@0900 01/18/22 01/19/22 History [Vyvanse] Orphenadrine [Norflex] 100 mg PO BID 01/18/22 01/19/22 History Paliperidone Palmitate [Invega 819 mg IM Q84H 01/18/22 01/19/22 History Trinza] Pregabalin [Lyrica] 100 mg PO BID 01/18/22 01/19/22 History prednisoLONE ACETATE 1% OPHTH 1 drop RIGHT EYE BID 01/18/22 01/19/22 History [Pred Forte 1%] Acetaminophen Tab [Tylenol] 650 mg PO Q4HR PRN tab 01/25/22 Rx Famotidine [Pepcid] 20 mg PO BID 30 Days tab 01/25/22 Rx Nicotine 14Mg/24Hr Patch [Habitrol] 1 patch TRANSDERM DAILY 14 Days 01/25/22 Rx patch Paliperidone [Invega] 9 mg PO HS 30 Days 01/25/22 Rx Sertraline [Zoloft] 50 mg PO DAILY 30 Days tab 01/25/22 Rx Trihexyphenidyl [Artane] 2 mg PO HS 30 Days tab 01/25/22 Rx clonazePAM [KlonoPIN] 1 mg PO HS PRN 14 Days tab 01/25/22 Rx traZODone HCL [Desyrel] 100 mg PO HS PRN 14 Days tab 01/25/22 Rx Allergies Allergy/AdvReac Type Severity Reaction Status Date / Time No Known Allergies Allergy Verified 03/18/22 13:44 Physical Exam Vitals: Vital Signs Temp Pulse Resp BP 04/19/22 21:02 97.8 F 83 18 127/60 Intake and Output 04/19/22 04/20/22 04/20/22 22:59 06:59 14:59 Other: Weight 113.4 kg
[2022-04-20] MEDS ORDERED: prednisoLONE ACETATE 1% OPHTH DROPS 5 ML BTL RIGHT EYE SCH (17:00)
[2022-04-20 18:28] LABS: Chol/HDL Ratio 3.66 Ratio; LDL Cholesterol,Calculated 75.8 mg/dL (0.0-131.0)
[2022-04-20] MEDS: prednisoLONE ACETATE 1% OPHTH DROPS 5 ML BTL RIGHT EYE SCH ×2 (18:52→19:58)
[2022-04-20] MEDS: clonazePAM 1 MG TAB PO SCH (19:57)
[2022-04-20] MEDS: PALIPERIDONE 3 MG TAB.ER.24 PO SCH (19:57)
[2022-04-20] MEDS: HALOPERIDOL LACTATE 5 MG/ML 1 ML VIAL IM PRN (20:52)
[2022-04-20] MEDS: LORazepam 2 MG/ML INJ IM PRN (20:52)
[2022-04-21] MEDS: NICOTINE 14MG/24HR PATCH TRANSDERM SCH (08:58)
[2022-04-21] MEDS: TRIHEXYPHENIDYL 2 MG TAB PO SCH ×3 (08:59→16:23)
[2022-04-21] MEDS: prednisoLONE ACETATE 1% OPHTH DROPS 5 ML BTL RIGHT EYE SCH ×2 (08:59→20:09)
[2022-04-21] MEDS ORDERED: VENLAFAXINE HCL ER 75 MG CAP PO SCH (09:00)
[2022-04-21] MEDS: PALIPERIDONE 3 MG TAB.ER.24 PO SCH (20:09)
[2022-04-21] MEDS: clonazePAM 1 MG TAB PO SCH (20:09)
[2022-04-22] MEDS: TRIHEXYPHENIDYL 2 MG TAB PO SCH ×2 (07:36→12:05)
[2022-04-22] MEDS: LORazepam 1 MG TAB PO PRN ×2 (07:38→14:56)
[2022-04-22 07:58] VITALS: BP 109/65; PULSE 81; RESP 16; TEMP 97.7
[2022-04-22] MEDS ORDERED: VENLAFAXINE HCL ER 150 MG CAP PO SCH (09:00)
[2022-04-22] MEDS: haloperidoL 5 MG TAB PO PRN (09:02)
[2022-04-22] MEDS: prednisoLONE ACETATE 1% OPHTH DROPS 5 ML BTL RIGHT EYE SCH (09:02)
[2022-04-22] MEDS: NICOTINE 14MG/24HR PATCH TRANSDERM SCH (09:02)
--- NOTE | 2022-04-22 12:08 | P.DS ---
Providers Date of admission: 04/19/22 20:44 Expected date of discharge: 04/22/22 Attending physician: Gerard Floyd MD Consults: 04/19/22 18:47 Consult Physician Routine Consulting Provider: Rai Souza Consult Reason/Comments: h & p Do you want consulting provider notified?: Yes Primary care physician: Darion Larson - Discharge Diagnosis(es) (1) Schizoaffective disorder Current Visit: Yes Status: Acute Priority: High (2) Cannabis use disorder, mild, abuse Current Visit: Yes Status: Acute Priority: Medium (3) Methamphetamine abuse Current Visit: Yes Status: Acute Priority: Medium (4) Nicotine dependence Current Visit: Yes Status: Acute Priority: Medium Hospital Course: Admission HPI: Patient is a single, unemployed, 26-year-old male with a significant history of schizoaffective disorder who presented to the hospital from [facility] in [place] for psychosis. Patient presented to the hospital on 04/19/2022, brought in to our hospital after being transferred from [facility] under petition and certification for worsening psychosis. The patient presented to the [facility] barefoot and endorsing significant delusions and paranoia believing "the Feds are going to kill me." Reportedly, the patient was noted to be disorganized and actively hallucinating. He is also noncompliant with his medications and appointments. Upon assessment on the psychiatric unit, the patient does admit to worsening psychotic symptoms including worsening auditory hallucinations, paranoia, and confusion. He is however denying any suicidal or homicidal ideation, intention, and/or plan. The patient does admit that he has not been in adherent with his medications however has been receiving Invega Trinza as scheduled as is due for his next injection on 05/11/2022. The patient is unable to identify any acute stressors that have led up to his current presentation. He is admitting to auditory hallucinations as well as generalized paranoia and feeling that the government is after him. The patient does report elevated anxiety and depression. He is agreeable to sign himself voluntarily into the psychiatric unit to address his psychosis and mood stability. Patient states that he has a previous diagnosis of schizoaffective disorder and methamphetamine use disorder. The patient has been. She prescribed trazodone, Klonopin, Artane, Zoloft, Invega, and is currently also on invega trinza. Patient was last hospitalized on their psychiatric unit in January 2022. He is supposed to follow with [facility] however has been nonadherent with his follow-ups. Patient denies any prior attempts at suicide. Hospital course: Upon admission to the unit patient was initially presenting as calm and cooperative albeit a poor historian of the events leading up to his hospitalization. Patient was however directable and agreeable to commence treatment. Patient got along well with other patients on the unit and followed unit protocol. Patient was compliant with the medications and denied any side effects throughout hospital course. Patient was started on oral Invega to augment his Invega trinza which is due on 05/11/2022, Artane for EPS symptoms, and Effexor XR for depression/anxiety. The patient was also started on some Klonopin for anxiety. Patient spoke of his stressors and engaged in therapy both group and individual. Patient was also seen by medical team for history and physical exam. With course the hospital physician, the patient displayed significant improvement regards to his target symptoms of psychosis and anxiety. He was calm and cooperative with staff and peers. He became more future and goal oriented with better insight and judgment. On the day of discharge, the patient is not reporting any suicidal or homicidal ideation, intention, and/or plan. He is not reporting any auditory or visualizations. He is denying any paranoia or other delusions. The patient appears to be somewhat medication seeking asking for benzodiazepine medication however was informed that we would not be discharging him with these. He was recommended to follow-up with his outpatient psychiatrist should he desire certain medications. The patient was counseled at length new point's medication adherence and appropriate outpatient follow-up. Furthermore, the patient does have a significant history of substance abuse and his counselor great length on abstaining all substances including alcohol and marijuana. Prior to discharge, family meeting will be arranged by the social sciences instructor to answer any questions and ensure safety. Mental status exam: General Appearance: Patient appears to be stated age is alert, pleasant, and cooperative. Patient is in no acute distress and has fair hygiene and grooming. Notable lesion over his right eye secondary to a childhood accident Behavior: Patient is calmly seated without any agitated behavior. Speech: Patient's speech is fluent and nonpressured. Mood/Affect: Patient reports their mood is "feeling good and ready to go", affect is congruent and euthymic. Suicidality/Homicidality: Patient denies having any suicidal or homicidal ideation intent or plan. Perceptions: Patient denies any auditory or visual hallucinations. Though content/process: There is no evidence of any delusional thought content and thought process is linear and goal-directed. Patient appears to be future oriented. Memory and concentration: AOX3, grossly intact for the purposes of this session. Can spell "WORLD" backwards correctly. Judgment and insight: Improved with guarded prognosis Impression: Schizoaffective disorder Methamphetamine use disorder Cannabis use disorder Nicotine dependence Plan: -Continue with discharge today as patient has improved and stabilized psychiatrically and is not currently an imminent threat to himself and/or others. Patient will remain at chronically elevated risk for harm to self and/or others due to his impulsivity and polysubstance abuse. -Continue medications: Effexor XR 150 mg by mouth daily for depression/anxiety Invega 1.5 mg by mouth at bedtime for psychosis/mood stabilization Invega Trinza 819 mg IM is due on 05/11/2022 Artane 4 mg by mouth 3 times a day for EPS side effects Habitrol patches for nicotine cessation -Patient was counseled on the need for medication compliance and appropriate follow-up at mental health and also primary care for medical issues. Patient verbalized understanding and agreed. -Social work to arrange for and conduct family meeting to ensure safety upon discharge and answer any questions/concerns. Social work also to arrange for patients follow up appointments with [facility] for psychiatric care along with follow up with primary care provider. -Patient counseled on abstaining from recreational drugs and marijuana and alcohol. Was informed/educated on the adverse effects on their physical and mental health. Patient verbally agreed and understood. -Patient was instructed to return to the hospital or seek immediate medical care if their psychiatric or medical symptoms do worsen or reoccur. -Psychoeducation and supportive therapy provided to patient. Risks and benefits of pharmacological treatment versus the risks and benefits of nontreatment weight and discussed. Informed consent discussion held. Common side effects of psychotropics discussed such as, but not limited to headache, GI disturbance, sexual dysfunction, movement disorders, sedation, and orthostatic hypotension. Life threatening and blackbox warnings of prescribed medications also discussed. Potential risks of operating a vehicle or heavy machinery discussed with patient at length. Advised on importance of compliance and a reliable and responsible manner. Patient advised to review FDA consumer labeling of all medications prior to taking. Patient verbalized understanding of potential risks, and agrees with current treatment plan. Patient advised to medically contact physician/emergency personnel if any acute changes in condition occur. Vital Signs Temp 97.7 F 04/22/22 07:30 Pulse 81 04/22/22 07:30 Resp 16 04/22/22 07:30 BP 109/65 04/22/22 07:30 Pulse Ox 96 04/22/22 07:30 FiO2 Laboratory Results Estimated Ave Glu mg/dL 99 04/20/22 13:53 Hemoglobin A1c 5.1 % (0.0-6.0) 04/20/22 13:53 Triglycerides 177.00 mg/dL (0.00-149.00) H 04/20/22 13:53 Cholesterol 153.00 mg/dL (0.00-200.00) 04/20/22 13:53 LDL Cholesterol, Calc 75.8 mg/dL (0.0-131.0) 04/20/22 13:53 VLDL Cholesterol, Calc 35.40 mg/dL (5.00-40.00) 04/20/22 13:53 HDL Cholesterol 41.80 mg/dL (40.00-60.00) 04/20/22 13:53 Cholesterol/HDL Ratio 3.66 Ratio 04/20/22 13:53 Allergies Allergy/AdvReac Type Severity Reaction Status Date / Time No Known Allergies Allergy Verified 03/18/22 13:44 Patient Condition at Discharge: Stable Plan - Discharge Summary New Discharge Prescriptions: New Venlafaxine HCl ER [Effexor XR] 150 mg PO DAILY 30 Days cap Nicotine 14Mg/24Hr Patch [Habitrol] 1 patch TRANSDERM DAILY 30 Days patch Paliperidone [Invega] 1.5 mg PO HS 30 Days tab Trihexyphenidyl [Artane] 4 mg PO AC-TID 30 Days tab Continue Albuterol Inhaler [Ventolin Hfa Inhaler] 2 puff INHALATION RT-Q4H PRN PRN Reason: Shortness Of Breath Famotidine [Pepcid] 20 mg PO BID 30 Days tab prednisoLONE ACETATE 1% OPHTH [Pred Forte 1%] 1 drop RIGHT EYE BID Paliperidone Palmitate [Invega Trinza] 819 mg IM Q84D Fluticasone Nasal [place] [Flonase Nasal [place]] 1 spray EA NOSTRIL DAILY PRN PRN Reason: Allergy Symptoms Discontinued Pregabalin [Lyrica] 100 mg PO BID traZODone HCL [Desyrel] 100 mg PO HS PRN 14 Days tab PRN Reason: Insomnia Lisdexamfetamine Dimesylate [Vyvanse] 40 mg PO DAILY@0900 Trihexyphenidyl [Artane] 2 mg PO HS 30 Days tab Nicotine 14Mg/24Hr Patch [Habitrol] 1 patch TRANSDERM DAILY 14 Days patch Paliperidone [Invega] 9 mg PO HS 30 Days Acetaminophen Tab [Tylenol] 650 mg PO Q4HR PRN tab PRN Reason: Pain/Discomfort Sertraline [Zoloft] 50 mg PO DAILY 30 Days tab clonazePAM [KlonoPIN] 1 mg PO BID PRN PRN Reason: Anxiety Discharge Medication List Albuterol Inhaler [Ventolin Hfa Inhaler] 2 puff INHALATION RT-Q4H PRN 01/18/22 [History] Fluticasone Nasal [place] [Flonase Nasal [place]] 1 spray EA NOSTRIL DAILY PRN 01/18/22 [History] Paliperidone Palmitate [Invega Trinza] 819 mg IM Q84D 01/18/22 [History] prednisoLONE ACETATE 1% OPHTH [Pred Forte 1%] 1 drop RIGHT EYE BID 01/18/22 [History] Famotidine [Pepcid] 20 mg PO BID 30 Days tab 01/25/22 [Rx] Nicotine 14Mg/24Hr Patch [Habitrol] 1 patch TRANSDERM DAILY 30 Days patch 04/22/22 [Rx] Paliperidone [Invega] 1.5 mg PO HS 30 Days tab 04/22/22 [Rx] Trihexyphenidyl [Artane] 4 mg PO AC-TID 30 Days tab 04/22/22 [Rx] Venlafaxine HCl ER [Effexor XR] 150 mg PO DAILY 30 Days cap 04/22/22 [Rx] Follow up Appointment(s)/Referral(s): [facility] [Outside] - 04/26/22 10:00 am (04-26-22 @ 10 with Joey 05-11-[address] Tesfaye ) Patient Instructions/Handouts: How to Stop Smoking (DC), Schizoaffective Disorder (DC) Activity/Diet/Wound Care/Special Instructions: Avoid the use of street drugs and alcohol. Take all prescriptions as prescribed. When you are in need of refills on your medications, please contact your medical provider and/or outpatient psychiatrist to have this done. Please go to scheduled outpatient appointment for aftercare treatment. If symptoms return or become worse, call the crisis line at and/or go to the nearest emergency room for evaluation. Discharge Disposition: HOME SELF-CARE
--- NOTE | 2022-04-22 12:10 | P.PN ---
Progress Note - Text Progress Note Date: 04/21/22 Interval History: Patient was seen resting in bed and was directable and agreeable to speak with scientific writer in the office. The patient stresses that he is feeling better. He is currently not reporting any auditory or visual hallucinations. He is denying any paranoia or other delusions. The patient has been hit with his medication is not endorsing any significant side effects. He continues to report elevated anxiety and is requesting if he can have medication to help with this. However, the patient is future and goal oriented and is asking if he is able to be discharged if his parents provide him with his vehicle. Mental Status Exam: General Appearance: Patient appears to be stated age is alert, directable, and cooperative. Behavior: Patient is calmly seated without any agitated behavior. Speech: Patient's speech is fluent and nonpressured. Mood/Affect: Mood is improving mildly, affect is congruent and constricted. Suicidality/Homicidality: Patient denies having any suicidal or homicidal ideation intent or plan. Perceptions: Patient denies any visual hallucinations and denies any auditory hallucinations Though content/process: There is no evidence of any delusional thought content and thought process is linear and goal-directed. Memory and concentration: AOX3, grossly intact for the purposes of this session Judgment and insight: Improving mildly Assessment Schizoaffective disorder Methamphetamine use disorder Cannabis use disorder Nicotine dependence Plan: -Patient continues to meet criteria for inpatient psychiatric admission for symptom stabilization and safety. Patient has signed adult voluntary form and medication consent and was placed in patient's chart. -Medications: Klonopin 0.5 mg by mouth every morning and 1 mg by mouth daily at bedtime for anxiety Invega 1.5 mg by mouth at bedtime for psychosis; patient is due for his Invega Trinza on 05/11/2022. Artane 2 mg 3 times a day for EPS symptoms -When necessary Ativan and haldol for agitation/aggression. -NRT - nicotine patch -SW on board for discharge planning. Encouraged the patient to participate in milieu.
== END 2022-04-22 15:38 | disposition home or self-care (01) | DRG 885 ==
LOC: UNDOADMIN 17:32 → 3MHU 17:32
PROVIDERS: ADMIT Psychiatry & Neurology Psychiatry; ATTEND Psychiatry & Neurology Psychiatry
DX: F25.9 Schizoaffective disorder, unspecified (principal); E66.9 Obesity, unspecified; F15.10 Other stimulant abuse, uncomplicated; F31.9 Bipolar disorder, unspecified; G89.29 Other chronic pain; K21.9 Gastro-esophageal reflux disease without esophagitis; M79.7 Fibromyalgia; F43.10 Post-traumatic stress disorder, unspecified; F17.210 Nicotine dependence, cigarettes, uncomplicated; H54.61 Unqualified visual loss, right eye, normal vision left eye; F51.05 Insomnia due to other mental disorder; M54.89 Other dorsalgia; F90.9 Attention-deficit hyperactivity disorder, unspecified type; Z68.33 Body mass index [BMI] 33.0-33.9, adult; Z91.14 Patient's other noncompliance with medication regimen; Z91.19 Patient's noncompliance with other medical treatment and regimen; Z59.00 Homelessness unspecified; T26 Burn and corrosion confined to eye and adnexa; Z98.890 Other specified postprocedural states; Z79.899 Other long term (current) drug therapy; Z81.8 Family history of other mental and behavioral disorders
CPT/HCPCS: 80061; 83036